=== PATIENT | female | born 1945 | race Caucasian/White ===

== ENCOUNTER 2017-07-03 09:49 | Inpatient (IN) | payer OTHER ==
[2017-06-07 11:24] VITALS: BMI 26.0
--- NOTE | 2017-06-07 11:59 | PAT Medication Instructions ---
Service Date Jun 07, 2017. Current Home Medication List Acetaminophen/Diphenhydramine (Tylenol Pm), 1 TAB PO HS PRN for PRN Calcium (Calcium), Unknown Dose PO HS Cyclosporine (Ophth) (Restasis), 1 DROP OPL BID Duloxetine HCl (Cymbalta), 60 MG PO HS Duloxetine HCl (Cymbalta), 40 MG PO HS Esomeprazole Magnesium (Nexium), 20 MG PO HS Fish Oil (Vendor-3), 2 CAP PO HS Folic Acid (Folvite), 6 MG PO QAM Hydrocodone/Acetaminophen 7.5MG/325MG ([place] 7.5MG/325MG), 1 TAB PO Q8 PRN for Pain Lysine HCl (Lysine), Unknown Dose PO HS Methotrexate (Methotrexate), 8 MG PO 1XWEEK Naproxen (Naprosyn), 500 MG PO BID Nebivolol Hcl (Bystolic), 20 MG PO QAM Pregabalin (Lyrica), 75 MG PO BID [Allergy Injection], Unknown Dose INJ UD Medication Instructions For Your Scheduled Surgery -Contact your prescriber for instructions for: Methotrexate (Methotrexate), 8 MG PO 1XWEEK -Contact your surgeon for instructions for: Naproxen (Naprosyn), 500 MG PO BID -Continue as directed: [Allergy Injection], Unknown Dose INJ UD - Hold the following medications 2 weeks prior to surgery: Fish Oil (Vendor-3), 2 CAP PO HS Lysine HCl (Lysine), Unknown Dose PO HS - Hold the following medications the morning of surgery: Folic Acid (Folvite), 6 MG PO QAM - Take the following medications the morning of surgery with a sip of water: Pregabalin (Lyrica), 75 MG PO BID Nebivolol Hcl (Bystolic), 20 MG PO QAM Hydrocodone/Acetaminophen 7.5MG/325MG ([place] 7.5MG/325MG), 1 TAB PO Q8 PRN for Pain (if needed, can be taken up to four hours before surgery) - Take the following medications as scheduled the night before surgery: Pregabalin (Lyrica), 75 MG PO BID Acetaminophen/Diphenhydramine (Tylenol Pm), 1 TAB PO HS PRN for PRN (if needed) Calcium (Calcium), Unknown Dose PO HS Cyclosporine (Ophth) (Restasis), 1 DROP OPL BID Duloxetine HCl (Cymbalta), 60 MG PO HS Duloxetine HCl (Cymbalta), 40 MG PO HS Esomeprazole Magnesium (Nexium), 20 MG PO HS Nebivolol Hcl (Bystolic), 20 MG PO QAM Hydrocodone/Acetaminophen 7.5MG/325MG ([place] 7.5MG/325MG), 1 TAB PO Q8 PRN for Pain (if needed) If you have any questions please call us at [phone] or [phone] or [phone]
--- NOTE | 2017-06-07 13:06 | DIAGNOSTIC IMAGING REPORT ---
CHEST 2 VIEWS ROUTINE CLINICAL HISTORY: Preoperative evaluation. COMPARISON STUDY: No previous studies for comparison. FINDINGS: Lung volumes are normal. No pneumothorax or pleural the effusion is present. There is no evidence of pulmonary edema. There is moderate cardiomegaly. No consolidation is identified to suggest pneumonia. Linear opacity projecting over the heart on lateral projection reflects atelectasis or scarring. IMPRESSION: 1. No acute cardiopulmonary findings. 2. Moderate cardiomegaly. Electronically signed by: Hua Mitchell M.D. 06/07/2017 1:05 PM Dictated Date/Time: 06/07/2017 1:04 PM
--- NOTE | 2017-06-07 13:25 | DIAGNOSTIC IMAGING REPORT ---
CERVICAL SPINE 3 VIEWS with flexion and extension HISTORY: Rheumatoid arthritis. Pre-op lateral: neutral, flexion, extension COMPARISON: None. FINDINGS: The cervical spine is visualized from C1 through the superior endplate of T1. There is no fracture. There is 1 mm of retrolisthesis of C5 on C6. Severe disc space narrowing at C5-C6 and C6-C7 with endplate osteophytes. Mild to moderate facet degenerative changes within the cervical spine. Straightening of the lower cervical spine. 1 mm of anterolisthesis of C3 on C4. The alignment remains intact throughout flexion and extension. Prevertebral soft tissues and the atlantodens interval are intact. IMPRESSION: 1. The alignment remains intact throughout flexion and extension. 2. Degenerative changes as described above. Electronically signed by: Fermin Saeed M.D. 06/07/2017 1:23 PM Dictated Date/Time: 06/07/2017 1:21 PM
[2017-06-07 14:10] LABS: CALCIUM 8.9 mg/dl (8.5-10.1); CREATININE 0.92 mg/dl (0.60-1.20); POTASSIUM 3.7 mmol/L (3.5-5.1)
[~2017-07-03] VITALS: Ht 182.9 cm; Wt 87.5 kg
[~2017-07-03 09:49] MED LIST: ALLERGY INJECTION INJ; CALC1CAP24 PO; CEFAZOLIN 2000MG IV PUSH 15 ML IV SCH; CYCL0.052 OPL; CYM/30 PO; DIPH-437 PO; DULO-24 PO; ESOM20CA PO; FOLI1TAB8 PO; HYDR-3983 PO; LACTATED RINGER'S 1000ML 1,000 ML IV SCH; LYSI1TAB12 PO; METH2.5T PO; NAPR-1169 PO; NEBI20TA2 PO; OMEG10007 PO; PATIENT'S ALLERGY INFO NEEDS ENTERED SCH; PREG1CAP28 PO
[2017-07-03 10:37] VITALS: BP 162/100; PULSE 59; TEMP 36.5; O2SAT 98; Ht 182.9 cm; Wt 87.5 kg
[2017-07-03] MEDS ORDERED: MoRPHine SULFATE 10 MG/ML CARP/VIAL IV PRN (10:45)
[2017-07-03] MEDS ORDERED: ATROPINE SULFATE 0.1 MG/ML 5ML SYR IV PRN (10:45)
[2017-07-03] MEDS ORDERED: ONDANSETRON INJ 2 MG/ML 2 ML VIAL IV PRN ×2 (10:45→13:15)
[2017-07-03] MEDS ORDERED: EpHEDrine SULFATE INJ 50 MG/ML AMP IV PRN (10:45)
[2017-07-03] MEDS ORDERED: FENTANYL CITRATE INJ 50 MCG/1 ML 2 ML VIAL IV PRN (10:45)
[2017-07-03] MEDS ORDERED: FENTANYL CITRATE INJ 50 MCG/1 ML 2 ML VIAL ONE ×2 (10:46→11:47)
[2017-07-03] MEDS ORDERED: MIDAZOLAM HCL 1 MG/ML 2ML VIAL ONE (10:46)
--- NOTE | 2017-07-03 10:57 | History & Physical Bridge Note ---
H&P Re-Evaluation Bridge Note: I have examined the patient, reviewed the History & Physical and in the interval since the performance of the History & Physical I have noted the following changes of clinical significance: No changes noted
--- NOTE | 2017-07-03 10:58 | History and Physical ---
History & Physical Date Jul 03, 2017. Chief Complaint Back and leg pain History of Present Illness The patient is a 71 year old female with complaints of back and leg pain Additional History Hepatic Disease: No Endocrine Disorder: No Kidney Disease: No Hypertension: No Heart Disease: No Bleeding Tendencies: No Infectious Diseases: No Home Medications Scheduled Calcium (Calcium), Unknown Dose PO HS Cyclosporine (Ophth) (Restasis), 1 DROP OPL BID Duloxetine HCl (Cymbalta), 60 MG PO HS Duloxetine HCl (Cymbalta), 40 MG PO HS Esomeprazole Magnesium (Nexium), 20 MG PO HS Fish Oil ([place]-3), 2 CAP PO HS Folic Acid (Folvite), 6 MG PO QAM Lysine HCl (Lysine), Unknown Dose PO HS Methotrexate (Methotrexate), 8 MG PO 1XWEEK Naproxen (Naprosyn), 500 MG PO BID Nebivolol Hcl (Bystolic), 20 MG PO QAM Pregabalin (Lyrica), 75 MG PO BID [Allergy Injection], Unknown Dose INJ UD Scheduled PRN Acetaminophen/Diphenhydramine (Tylenol Pm), 1 TAB PO HS PRN for PRN Hydrocodone/Acetaminophen 7.5MG/325MG ([place] 7.5MG/325MG), 1 TAB PO Q8 PRN for Pain Physical Examination Skin: warm/dry, no rash Eyes: normal inspection, EOMI, sclerae normal ENT: normal ENT inspection, pharynx normal Head: normocephalic, atraumatic Neck: supple, no adenopathy, trachea midline Respiratory/Chest: lungs clear, normal breath sounds, no respiratory distress Cardiovascular: regular rate, rhythm, no edema, no murmur Abdomen / GI: normal bowel sounds, non tender Back: normal inspection Extremities: normal inspection, normal range of motion Neurologic/Psych: no motor/sensory deficits, alert, normal reflexes, oriented x 3 Diagnosis Lumbar spinal stenosis Plan of Treatment Lumbar decompression and fusion L4-5
[2017-07-03] MEDS ORDERED: BUPIVACAINE/EPINEPHRINE 0.5% MPF 1:200,000 30 ML VIAL ONE (11:10)
[2017-07-03] MEDS ORDERED: BACITRACIN 50000 UNIT VIAL ONE (11:10)
[2017-07-03] MEDS ORDERED: SCOPOLAMINE 1.5 MG TDSY TD ONE (11:11)
[2017-07-03] MEDS ORDERED: CEFAZOLIN SOD 2000MG/15 ML IV PUSH IV ONE (11:24)
[2017-07-03] MEDS ORDERED: HYDROmorphone INJ 2 MG/ML SYR/VIAL ONE ×2 (11:47→13:11)
[2017-07-03] MEDS ORDERED: FLOSEAL HEMOSTATIC MATRIX 10ML TOP ONE (13:08)
[2017-07-03] MEDS ORDERED: DEXAMETHASONE SOD INJ 4 MG/ML VIAL ONE (13:11)
[2017-07-03] MEDS ORDERED: LIDOCAINE HCL 2% 2 ML VIAL (20MG/ML) ONE (13:11)
[2017-07-03] MEDS ORDERED: PHENYLEPHRINE 100MCG/ML 5ML SYR ONE (13:11)
[2017-07-03] MEDS ORDERED: GLYCOPYRROLATE INJ 0.2 MG/ML VIAL ONE ×2 (13:11→13:13)
[2017-07-03] MEDS ORDERED: EpHEDrine SULFATE INJ 50 MG/ML AMP ONE (13:11)
[2017-07-03] MEDS ORDERED: PROPOFOL IV EMULSION 10 MG/ML 20 ML VIAL IV ONE (13:11)
[2017-07-03] MEDS ORDERED: ROCURONIUM BROMIDE 10 MG/ML 5 ML VIAL IV ONE (13:11)
[2017-07-03] MEDS ORDERED: ONDANSETRON INJ 2 MG/ML 2 ML VIAL ONE ×2 (13:11→13:13)
[2017-07-03] MEDS ORDERED: NEOSTIGMINE METHYLSULFATE 1 MG/ML 10ML VIAL ONE (13:13)
[2017-07-03] MEDS ORDERED: RANITIDINE HCL 25 MG/ML INJ ONE (13:13)
[2017-07-03] MEDS ORDERED: KETOROLAC TROMETHAMINE 30 MG/ML VIAL ONE (13:13)
--- NOTE | 2017-07-03 13:13 | [facility] Operative Report ---
Operative Report Operative Date Jul 03, 2017. Pre-Operative Diagnosis Lumbar spinal stenosis L4-L5 Post-Operative Diagnosis Lumbar spinal stenosis L4-L5 Procedure(s) Performed #1 lumbar decompression medial facetectomies foraminotomies L3 4 L4 5. #2 posterior spinal fusion L4 5. #3 placement posterior instrumentation L4 5. #4 interbody fusion L4 5. #5 placement peek cage 15 x 22 mm at L45. #6 placement of locally harvested morcellized autograft in the posterior lateral gutters. #7 placement infuse collagen sponge Master graft in the posterior lateral gutters and ostial amp in the interbody space. Surgeon Dr. Cohen Metal Baler Surgeon(s) Agueda RYAN Estimated Blood Loss 250 ml Findings Severe spinal stenosis with facet cyst. Specimens none per surgeon Anesthesia Type General Description of Procedure Patient was met with preoperatively case discussed all questions addressed. After informed consent obtained patient was taken to the operative suite underwent intubation and placed in a prone position the Arthur table on top of the Ravinedr frame. All bony prominences well-padded eyes inspected to ensure no external pressure placed upon them. At this point the lumbar spine was prepped and draped in the normal sterile fashion. Sharp dissection with the assistance of Bovie cautery was performed onto an exposing the lamina transverse processes of L4 5 bilaterally. From a caudal to cephalad fashion complete laminectomy of L4 partial laminectomy of L3 was performed addressing severe lateral recess foraminal disease including massive facet cyst. After this is complete pedicle screws were placed in L4 and L5 bilaterally with the assistance of fluoroscopy and the processes janet placed. Through a transverse foraminal approach on the right a complete discectomy of L4 5 was performed endplates graded to subcortical bleeding bone and a 15 x 22 mm peek cage filled with osteal bone graft tapped in position. Rods and then compressed locked into final position bilaterally. The transverse processes of L4 and L5 burred to subcortical bleeding bone. Infuse collagen sponge mass graft locally harvested morcellized autograft was placed in the posterior lateral gutters. 15 round JEFF drain inserted. Incision then closed with 1 Vicryl in the fascia 2-0 Vicryl subcutaneous tensely 4-0 Monocryl for final skin closure Steri-Strips dressings placed. Patient awakened taken PACU stable condition. Please note Juana العراقي was present at the entire procedure involved in patient positioning complex portions of the surgery and final skin closure. I attest to the content of the Intraoperative Record and any orders documented therein. Any exceptions are noted below.
[2017-07-03] MEDS ORDERED: SODIUM CHLORIDE 0.9% 1000ML 1,000 ML IV SCH (13:14)
[2017-07-03] MEDS ORDERED: FAMOTIDINE 20 MG TAB PO PRN (13:15)
[2017-07-03] MEDS ORDERED: METOCLOPRAMIDE HCL INJ 5 MG/ML 2 ML VIAL IV PRN (13:15)
[2017-07-03] MEDS ORDERED: DO NOT ADMINISTER PNEUMOCOCCAL VACCINE PRN (13:15)
[2017-07-03] MEDS ORDERED: CEFAZOLIN IV 2,000 MG in DEXTROSE 5% 50ML 50 ML IV SCH (13:15)
[2017-07-03] MEDS ORDERED: ALUMINUM/MAGNESIUM SUSP 30 ML UDC PO PRN (13:15)
[2017-07-03] MEDS ORDERED: LORAZEPAM 0.5 MG TAB PO PRN (13:15)
[2017-07-03] MEDS ORDERED: SOD PHOSPHATE/SOD BIPHOSPHATE ENEMA 132 ML BTL PR PRN (13:15)
[2017-07-03] MEDS ORDERED: PROMETHAZINE HCL INJ 12.5 MG in SODIUM CHLORIDE 0.9% 50ML 50 ML IV PRN (13:15)
[2017-07-03] MEDS ORDERED: BISACODYL 10 MG SUPP PR PRN (13:15)
[2017-07-03] MEDS ORDERED: LORAZEPAM INJ 0.5 MG in SYRINGE 0 ML IV PRN (13:15)
[2017-07-03] MEDS ORDERED: hydrOXYzine HCL 25 MG TAB PO PRN (13:15)
[2017-07-03] MEDS ORDERED: DO NOT ADMINISTER FLU VACCINE PRN (13:15)
[2017-07-03] MEDS ORDERED: NALOXONE HCL 0.4 MG/1 ML VIAL/CARP IV PRN (13:15)
[2017-07-03] MEDS ORDERED: ACETAMINOPHEN IV 100 ML IV PRN (13:15)
[2017-07-03] MEDS ORDERED: MAGNESIUM HYDROXIDE SUSP 30 ML UDC PO PRN (13:15)
[2017-07-03] MEDS ORDERED: HYDROmorphone HCL 0.5MG/ML 50 ML CASSETTE ONE (13:31)
--- NOTE | 2017-07-03 13:51 | DIAGNOSTIC IMAGING REPORT ---
LUMBAR SPINE, INTRAOPERATIVE FLUOROSCOPY HISTORY: L4-5 decompression and fusion. FLUOROSCOPY TIME: 11 seconds. FINDINGS: Intraoperative fluoroscopy was provided for the lumbar spine. 2 fluoroscopic spot images were obtained. Posterior decompression and fusion at L4-L5 with pedicle screws and rods. The hardware appears intact. IMPRESSION: Fluoroscopy provided for a L4-5 posterior decompression and fusion. Electronically signed by: Fermin Saeed M.D. 07/03/2017 1:49 PM Dictated Date/Time: 07/03/2017 1:49 PM
--- NOTE | 2017-07-03 14:14 | Anesthesiology Progress Note ---
Anesthesia Post Op Note Date & Time Jul 03, 2017 at 14:14 Vital Signs Pain Intensity: 2 Vital Signs Past 12 Hours Date Time Temp Pulse Resp B/P (MAP) Pulse Ox O2 Delivery O2 Flow Rate FiO2 07/03/17 13:55 71 13 145/81 98 Nasal Cannula 4 07/03/17 13:45 60 13 144/77 100 Oxymask 10 07/03/17 13:35 60 13 143/75 100 Oxymask 10 07/03/17 13:27 36.0 61 14 142/79 94 Oxymask 10 07/03/17 10:37 36.5 59 16 162/100 98 Room Air Notes Mental Status: alert / awake / arousable, participated in evaluation Pt Amnestic to Procedure: Yes Nausea / Vomiting: adequately controlled Pain: adequately controlled Airway Patency, RR, SpO2: stable & adequate BP & HR: stable & adequate Hydration State: stable & adequate Anesthetic Complications: no major complications apparent
[2017-07-03] MEDS: HYDROmorphone HCL 0.5MG/ML 50 ML CASSETTE IV PRN ×3 (14:37→22:59)
[2017-07-03 14:45] VITALS: BP 139/78; PULSE 68; TEMP 36.6; O2SAT 99
[2017-07-03 15:10] VITALS: BP 127/70; PULSE 61; TEMP 36.8; O2SAT 100
[2017-07-03 16:10] VITALS: O2SAT 100
[2017-07-03] MEDS: SODIUM CHLORIDE 0.9% 1000ML 1,000 ML IV SCH ×2 (17:06→23:53)
[2017-07-03] MEDS: CEFAZOLIN IV 2,000 MG in SYRINGE 0 ML IV SCH (19:55)
[2017-07-03 20:02] VITALS: BP 170/82; PULSE 77; TEMP 36.9; O2SAT 96
[2017-07-03] MEDS: PANTOprazole SOD 40 MG TAB PO SCH (22:02)
[2017-07-03] MEDS: DULOXETINE (CYMBALTA) 30 MG CAP PO SCH (22:03)
[2017-07-03] MEDS: DOCUSATE SODIUM/SENNA 50/8.6MG TAB PO SCH (22:03)
[2017-07-03] MEDS: DULOXETINE HCL 20 MG CAP PO SCH (22:03)
[2017-07-03] MEDS: PREGABALIN 75 MG CAP PO SCH (22:03)
[2017-07-03 22:48] VITALS: BP 157/82; PULSE 76; TEMP 36.6; O2SAT 97
[2017-07-04 03:10] VITALS: BP 127/69; PULSE 75; TEMP 36.5; O2SAT 97
[2017-07-04] MEDS: CEFAZOLIN IV 2,000 MG in SYRINGE 0 ML IV SCH (03:31)
[2017-07-04] MEDS ORDERED: HYDROmorphone INJ 0.5 MG/0.5 ML SYR IV PRN (06:00)
[2017-07-04] MEDS ORDERED: NALOXONE HCL 0.4 MG/1 ML VIAL/CARP IV PRN (06:00)
[2017-07-04] MEDS ORDERED: DC PCA SCH (06:00)
[2017-07-04] MEDS ORDERED: NURSING DECISION MEDICATION ORDER SCH (06:30)
[2017-07-04] MEDS: OXYCODONE HCL IR 5 MG TAB (IMMEDIATE RELEASE) PO PRN ×4 (06:39→22:24)
[2017-07-04 07:00] VITALS: BP 145/66; PULSE 70; TEMP 36.4; O2SAT 100
[2017-07-04 07:01] LABS: HEMOGLOBIN 9.8 g/dL (12.0-16.0); IG# 0.03 K/uL (0.00-0.02); LYMPH % 6.9 %; LYMPH ABS # 0.77 K/uL (1.2-3.4); MEAN CELL VOLUME 79.5 fL (80-100); MEAN CORPUSCULAR HEMOGLOBIN 26.8 pg (25-34); MEAN CORPUSCULAR HGB CONC 33.8 g/dl (32-36); MEAN PLATELET VOLUME 9.1 fL (7.4-10.4); MONO % 6.6 %; MONO ABS # 0.74 K/uL (0.11-0.59); NEUT % 86.2 %; NEUT ABS # 9.63 K/uL (1.4-6.5); PLATELET COUNT 224 K/uL (130-400); RED CELL DISTRIBUTION WIDTH CV 16.6 % (11.5-14.5); RED CELL DISTRIBUTION WIDTH SD 48.3 fL (36.4-46.3); WHITE BLOOD COUNT 11.17 K/uL (4.8-10.8)
[2017-07-04 07:31] LABS: CALCIUM 8.8 mg/dl (8.5-10.1); CREATININE 0.79 mg/dl (0.60-1.20); POTASSIUM 3.9 mmol/L (3.5-5.1)
[2017-07-04] MEDS: HYDROmorphone INJ 1 MG/ML SYR IV PRN ×3 (08:01→14:15)
[2017-07-04] MEDS: PREGABALIN 75 MG CAP PO SCH ×2 (08:54→22:12)
[2017-07-04] MEDS: NEBIVOLOL HCL 5 MG TAB PO SCH (09:02)
--- NOTE | 2017-07-04 10:18 | Progress Note ---
Progress Note Date of Service Jul 04, 2017. Progress Note Patient is a comfortable. She states her back leg pain is controlled. On exam she is sitting up at the bedside. Has good strength testing. Assessment status post lumbar decompression fusion. Plan this time will continue physical therapy advance her bowel regimen and consider discharge home tomorrow with home health.
[2017-07-04] MEDS ORDERED: RXC5 PO (10:19)
--- NOTE | 2017-07-04 10:20 | Discharge Instructions ---
Discharge Instructions Date of Service Jul 04, 2017. Admission Reason for Admission: Lumbar Spinal Stenosis L4-5 Discharge Discharge Diagnosis / Problem: lumbar stenosis Discharge Goals Goal(s): Improve function Activity Recommendations Activity Limitations: per Instructions/Follow-up section . Instructions / Follow-Up Instructions / Follow-Up ACTIVITY RECOMMENDATIONS: SELF CARE INSTRUCTIONS AFTER THORACIC/LUMBAR FUSIONS 1. You may walk to your tolerance. It is good exercise for your legs and back. Expect some back and intermittent leg aches and pains. 2. You may perform "counter-top" level activities (make a sandwich, maureen with a project, etc.). 3. No bending or lifting of more than 10 pounds or back twisting of any nature (roll like a log when turning in bed). 4. You may ride in a car for 20-30 minutes at a time. No driving until after your first visit with your doctor. 5. Frequent changes of position and restricting sitting to 30 minutes at a time will help limit the amount of back spasms and stiffness you may experience. 6. You may discontinue the use of ambulatory aids (cane, crutches, etc.) once your strength and confidence allow. 7. You may refractory grinder operator the shower and let water strike your incision when you arrive home at least once daily. Do not take a tub bath, sit in a hot tub or go into a swimming pool until after your first recheck in the office. SPECIAL CARE INSTRUCTIONS: VERY IMPORTANT TO READ AND REVIEW A. Your surgical incision has been closed with a cosmetic suture under the skin that will dissolve in about 6 weeks. In 14 days, you can use a pair of clean scissors and cut the suture that is left outside of the skin at the ends of your incision. 1. The small skin tapes can be removed 7 days after surgery if they have not fallen off by that point. 2. You may keep the wound open to air as much as possible to promote healing after post-op day number 5 unless told otherwise by your doctor. 3. If you think the wound looks like it is becoming infected (redness or worsening drainage) and/or you are experiencing fever, chill or worsening back pain and muscle spasms, contact the office so that we may evaluate you as soon as possible. B. Complications are uncommon, but please contact us if you have any signs or symptoms of: 1. wound infection (fever higher than 102.5 degrees F, redness, separation of wound, drainage, or increasing pain from the incision) 2. blood clots in legs (pain, swelling, redness and warmth in legs) 3. urinary tract infection (fever higher than 102.5 degrees F, burning upon urination or increased frequency of urination) 4. nerve problems (inability to walk on your toes or heels, numbness, loss of bowel or bladder control) 5. any other symptoms that concern you C. Please call the office at if you have any concerns or questions about your operation or recovery. D. No smoking! Smoking drastically decreases the chance of a solid fusion. E. Do not take any anti-inflammatory medications (Indocin, Advil, Motrin, Aspirin, Naprosyn, etc.) as these may inhibit the chance of a solid fusion. Tylenol is okay to take for pain. MANAGING PAIN AFTER SPINAL SURGERY 1. Narcotic medication is intended for short-term use and will be provided for surgical pain. Surgical pain usually lasts for a period of 4-6 weeks. Narcotic medication includes Percocet, Vicodin, Darvocet, Tylenol #3 or Lortab. 2. Longer-term pain is more appropriately treated with non-narcotic medication such as Tylenol ES. 3. Muscle spasm is not appropriately treated with narcotics. Muscle relaxers such as Soma, Flexeril or Skelaxin can be used along with Tylenol ES. 4. Remember that we all live with some "aches and pains". This is not unusual or uncommon after an injury or as we get older. a. Back pain is expected and may include muscle spasms for 4 to 6 weeks after surgery. The pain should gradually improve. If the pain worsens for no apparent reason, please contact the office. b. Intermittent leg pain may also be experienced and should not be concerned about unless it worsens for no apparent reason. If so, please contact the office. 5. We will provide appropriate medication within the normal guidelines of their prescribed use. We will also be very cautious and aware of potential abuse and extended duration of patients' medication needs. a. Pain medications are for your comfort and to assist with sleep and rest so that the tissue can heal. They are not provided in order to return to normal activity and should not be used through the day. To do so or worsening pain at night can result from ongoing tissue damage and development of tolerance to the prescribed medicine. 6. Please allow 2-3 days to process refills. Prescriptions will not be mailed but must be picked up at the office. FOLLOW UP VISIT: Keep your scheduled follow-up appointment. Any questions, please call the office at . Current Hospital Diet Patient's current hospital diet: Regular Diet Discharge Diet Recommended Diet: Regular Diet Procedures Procedures Performed: #1 lumbar decompression medial facetectomies foraminotomies L3 4 L4 5. #2 posterior spinal fusion L4 5. #3 placement posterior instrumentation L4 5. #4 interbody fusion L4 5. #5 placement peek cage 15 x 22 mm at L45. #6 placement of locally harvested morcellized autograft in the posterior lateral gutters. #7 placement infuse collagen sponge Master graft in the posterior lateral gutters and ostial amp in the interbody space. Pending Studies Studies pending at discharge: no Medical Emergencies . Who to Call and When: Medical Emergencies: If at any time you feel your situation is an emergency, please call 911 immediately. . Non-Emergent Contact Non-Emergency issues call your: Primary Care Provider . "Provider Documentation" section prepared by Brant Cohen. . VTE Core Measure Inpt VTE Proph given/why not?: Martha Ram, [facility]
[2017-07-04 11:35] VITALS: BP 124/74; PULSE 74; TEMP 36.9; O2SAT 96
[2017-07-04 15:45] VITALS: BP 129/76; PULSE 73; TEMP 36.8; O2SAT 95
[2017-07-04 18:55] VITALS: BP 146/78; PULSE 80; TEMP 36.6; O2SAT 94
[2017-07-04] MEDS: ACETAMINOPHEN 500 MG TAB PO PRN (19:37)
--- NOTE | 2017-07-04 20:18 | DIAGNOSTIC IMAGING REPORT ---
LUMBAR SPINE 2 VIEWS CLINICAL HISTORY: Fall. Low back pain. Recent lumbar fusion. FINDINGS: AP and lateral views of the lumbar spine are obtained. No prior studies are available for comparison at the time of dictation. The skeletal structures are osteopenic. There is no radiographic evidence of fracture or malalignment. Vertebral body height and alignment are maintained throughout the lumbar spine. There is evidence of laminectomy and posterior fusion at L4-L5. Intrapedicular screws are present at both levels. The orthopedic hardware appears intact. Anterior osteophytes are seen throughout. The transverse processes appear intact. There has been discectomy at L4-L5. Advanced disc space narrowing is seen at L2-L3 with associated endplate sclerosis. Only mild disc space narrowing is noted at the remaining lumbar levels. The bony pelvis is intact as visualized. There is a nonobstructed abdominal bowel gas pattern, noting moderate to severe constipation. A surgical drain is present within the posterior soft tissues. Atherosclerotic calcification is noted in the abdominal aorta. IMPRESSION: 1. There is no radiographic evidence of fracture or malalignment involving the lumbar spine. 2. Osteopenia with postoperative and spondylotic change, as above. 3. Moderate to severe constipation. Dictated: 07/04/2017 8:05 PM Transcribed: 07/04/2017 8:18 PM [email or web address] Electronically signed by: Nii Rodríguez M.D. 07/04/2017 8:27 PM Dictated Date/Time: 07/04/2017 8:05 PM
[2017-07-04] MEDS: DULOXETINE HCL 20 MG CAP PO SCH (22:13)
[2017-07-04] MEDS: DOCUSATE SODIUM/SENNA 50/8.6MG TAB PO SCH (22:13)
[2017-07-04] MEDS: DULOXETINE (CYMBALTA) 30 MG CAP PO SCH (22:13)
[2017-07-04] MEDS: PANTOprazole SOD 40 MG TAB PO SCH (22:14)
[2017-07-04 23:45] VITALS: BP 134/75; PULSE 71; TEMP 36.8; O2SAT 93
[2017-07-05] MEDS: POLYETHYLENE (MIRALAX) 17 GM PACK PO SCH ×4 (05:03→23:35)
[2017-07-05] MEDS: OXYCODONE HCL IR 5 MG TAB (IMMEDIATE RELEASE) PO PRN ×2 (05:04→10:30)
[2017-07-05 07:57] VITALS: BP 120/68; PULSE 77; TEMP 36.7; O2SAT 96
[2017-07-05 08:28] VITALS: O2SAT 96
[2017-07-05] MEDS: PREGABALIN 75 MG CAP PO SCH ×2 (08:55→20:42)
[2017-07-05] MEDS: NEBIVOLOL HCL 5 MG TAB PO SCH (08:56)
[2017-07-05 11:58] VITALS: BP 164/80; PULSE 78; TEMP 36.7; O2SAT 98
--- NOTE | 2017-07-05 13:07 | Progress Note ---
Progress Note Date of Service Jul 05, 2017. Progress Note Patient's back pain is controlled. Leg pain improved. On exam she is sitting in the bed has good strength testing appears comfortable. Assessment status post lumbar decompression fusion. Plan at this time her x-rays demonstrate instrumentation being placed appropriate alignment. We will discontinue her drain today. We are looking to transition her to [facility] tomorrow.
[2017-07-05 13:25] VITALS: BP 162/84; PULSE 81; TEMP 36.6; O2SAT 96
[2017-07-05 15:30] VITALS: BP 142/81; PULSE 76; TEMP 37.2; O2SAT 94
[2017-07-05] MEDS: ACETAMINOPHEN 500 MG TAB PO PRN (17:06)
[2017-07-05] MEDS: PANTOprazole SOD 40 MG TAB PO SCH (20:41)
[2017-07-05] MEDS: DULOXETINE HCL 20 MG CAP PO SCH (20:41)
[2017-07-05] MEDS: DULOXETINE (CYMBALTA) 30 MG CAP PO SCH (20:42)
[2017-07-05] MEDS: DOCUSATE SODIUM/SENNA 50/8.6MG TAB PO SCH (20:42)
[2017-07-05 23:52] VITALS: BP 156/77; PULSE 95; TEMP 36.7; O2SAT 94
[2017-07-06] MEDS: ACETAMINOPHEN 500 MG TAB PO PRN ×2 (04:41→16:51)
[2017-07-06] MEDS: POLYETHYLENE (MIRALAX) 17 GM PACK PO SCH ×2 (05:18→12:12)
[2017-07-06 07:46] VITALS: BP 173/80; PULSE 64; TEMP 36.6; O2SAT 92
[2017-07-06] MEDS: PREGABALIN 75 MG CAP PO SCH (08:31)
[2017-07-06] MEDS: NEBIVOLOL HCL 5 MG TAB PO SCH (08:32)
[2017-07-06 10:30] VITALS: BP 150/75
[2017-07-06 11:31] VITALS: BP 150/73
--- NOTE | 2017-07-06 12:41 | Discharge Summary ---
Orthopedic Discharge Summary Admission Date/Reason Jul 03, 2017 at 11:00 Lumbar Spinal Stenosis L4-5. Discharge Date/Disposition Jul 06, 2017 Rehab Diagnosis Principal Diagnosis: Lumbar spinal stenosis Admission Physical Exam As per Admitting History & Physical. Hospital Course Patient with lumbar decompression fusion tolerated as well as taken to the orthopedic floor postoperatively. Postoperative day #1 she was up in amatory progressed nicely through postop day #2 subsidence discharged to rehabilitation postop day 3. Discharge orders and instructions found in the chart for further review. Discharge Instructions Please refer to the electronic Patient Visit Report (Discharge Instructions) for additional information.
[2017-07-06 13:32] VITALS: BP 150/73; PULSE 64; TEMP 36.6; O2SAT 92
[2017-07-06 15:40] VITALS: PULSE 57; TEMP 36.4; O2SAT 97
[2017-07-06] MEDS: OXYCODONE HCL IR 5 MG TAB (IMMEDIATE RELEASE) PO PRN (16:50)
== END 2017-07-06 17:18 | DRG 455 ==
LOC: C.ACU 09:49 → C.3E 11:00 → ENRESERV 14:22 → C.3E 07-05 21:58
PROVIDERS: ADMIT Orthopaedic Surgery Orthopaedic Surgery of the Spine; ATTEND Orthopaedic Surgery Orthopaedic Surgery of the Spine
PROC: 0SG00AJ Fusion of Lumbar Vertebral Joint with Interbody Fusion Device, Posterior Approach, Anterior Column, Open Approach (ICD-10-PCS; principal; 2017-07-03 11:45)
PROC: 0SG0071 Fusion of Lumbar Vertebral Joint with Autologous Tissue Substitute, Posterior Approach, Posterior Column, Open Approach (ICD-10-PCS; principal; 2017-07-03 11:45)
PROC: 0ST40ZZ Resection of Lumbosacral Disc, Open Approach (ICD-10-PCS; principal; 2017-07-03 11:45)
DX: M48.061 Spinal stenosis, lumbar region without neurogenic claudication (principal)

== ENCOUNTER 2017-08-14 20:27 | Inpatient (IN) | payer OTHER ==
[~2017-08-14] VITALS: Ht 182.9 cm; Wt 85.0 kg
[~2017-08-14 20:27] MED LIST changes: -CEFAZOLIN 2000MG IV PUSH 15 ML IV SCH; -LACTATED RINGER'S 1000ML 1,000 ML IV SCH; -METH2.5T PO; -NAPR-1169 PO; -PATIENT'S ALLERGY INFO NEEDS ENTERED SCH; +RXC5 PO
[2017-08-14] MEDS ORDERED: ONDANSETRON INJ 2 MG/ML 2 ML VIAL IV STA (22:35)
[2017-08-14] MEDS ORDERED: KETOROLAC TROMETHAMINE 30 MG/ML VIAL IV STA (22:35)
[2017-08-14] MEDS ORDERED: MoRPHine SULFATE 4 MG/ML 1 ML CARP\\VIAL IV STA (22:35)
[2017-08-14 23:16] LABS: BASO % 1.1 %; BASO ABS # 0.09 K/uL (0-0.2); EOS ABS # 0.32 K/uL (0-0.5); HEMATOCRIT 33.4 % (37-47); HEMOGLOBIN 11.1 g/dL (12.0-16.0); IG# 0.02 K/uL (0.00-0.02); LYMPH % 19.5 %; LYMPH ABS # 1.55 K/uL (1.2-3.4); MEAN CELL VOLUME 74.7 fL (80-100); MEAN CORPUSCULAR HEMOGLOBIN 24.8 pg (25-34); MEAN CORPUSCULAR HGB CONC 33.2 g/dl (32-36); MEAN PLATELET VOLUME 8.8 fL (7.4-10.4); MONO % 8.3 %; MONO ABS # 0.66 K/uL (0.11-0.59); NEUT % 66.8 %; PLATELET COUNT 302 K/uL (130-400); RED CELL DISTRIBUTION WIDTH CV 16.2 % (11.5-14.5); RED CELL DISTRIBUTION WIDTH SD 44.2 fL (36.4-46.3); WHITE BLOOD COUNT 7.94 K/uL (4.8-10.8)
[2017-08-14 23:39] LABS: CALCIUM 8.8 mg/dl (8.5-10.1); CREATININE 0.93 mg/dl (0.60-1.20); POTASSIUM 3.2 mmol/L (3.5-5.1)
[2017-08-15] VITALS (11 sets, daily range): BP systolic 155–204; BP diastolic 76–102; PULSE 54–74; TEMP 36.4–36.9; O2SAT 96–99; Ht 182.9 cm; Wt 85.0 kg
[2017-08-15] MEDS ORDERED: MoRPHine SULFATE 4 MG/ML 1 ML CARP\\VIAL IV PRN (00:30)
[2017-08-15] MEDS ORDERED: NURSING VERBAL MED ORDER ONE (02:15)
[2017-08-15] MEDS ORDERED: OXYC-164 PO (02:46)
[2017-08-15] MEDS ORDERED: METH2.5T PO ×2 (02:48→09:09)
[2017-08-15] MEDS ORDERED: IV FLUIDS COMPLETED PRN (04:15)
[2017-08-15] MEDS: OXYCODONE HCL IR 5 MG TAB (IMMEDIATE RELEASE) PO PRN ×4 (04:36→18:53)
[2017-08-15] MEDS: HYDROmorphone INJ 2 MG/ML SYR/VIAL IV PRN ×3 (06:30→19:59)
--- NOTE | 2017-08-15 07:10 | DIAGNOSTIC IMAGING REPORT ---
MRI LUMBAR SPINE W/O CONTRAST CLINICAL HISTORY: Left leg pain. History of prior back surgery. TECHNIQUE: Sagittal and axial T1, T2 and STIR images were obtained. COMPARISON STUDY: Conventional radiographic study dated 07/04/2017 OBSERVATIONS: The vertebral bodies and posterior elements appear intact. There is no abnormal bony signal present to suggest a marrow replacement process. L1-2: No disc protrusions or extrusions. No evidence of spinal canal or neural foraminal compromise. L2-3: There is a right lateral disc bulge/protrusion. There is no spinal stenosis. There is right-sided foraminal narrowing. L3-4: There is a circumferential disc bulge with facet joint arthropathy and ligamentous hypertrophy. There is moderate spinal stenosis. There is bilateral foraminal narrowing. L4-5: There are postsurgical changes of a posterior laminectomy. There is posterior pedicle screw fixation with L4 and L5 pedicle screws. There is no significant spinal or foraminal stenosis. L5-S1: There is a mild circumferential disc bulge. There is facet joint arthropathy. There is no significant spinal or foraminal stenosis. Postsurgical changes are present within the posterior paraspinal soft tissues secondary to recent surgery. The conus medullaris and cauda equina appear normal. IMPRESSION: 1. Postsurgical changes the L4-5 level 2. Disc bulge and moderate spinal stenosis at the L3-4 level. There is also bilateral foraminal narrowing 3. Right lateral disc bulge/protrusion at the L2-3 level with right-sided foraminal narrowing. Electronically signed by: Dat Loco M.D. 08/15/2017 7:09 AM Dictated Date/Time: 08/15/2017 7:05 AM
[2017-08-15] MEDS ORDERED: METOPROLOL TARTRATE 50 MG TAB PO ONE (08:00)
[2017-08-15] MEDS: PREGABALIN 75 MG CAP PO SCH ×2 (08:25→21:07)
[2017-08-15] MEDS ORDERED: MAGNESIUM HYDROXIDE SUSP 30 ML UDC PO PRN (09:15)
[2017-08-15] MEDS ORDERED: ONDANSETRON INJ 2 MG/ML 2 ML VIAL IV PRN (09:45)
[2017-08-15] MEDS ORDERED: ACETAMINOPHEN 325 MG TAB PO PRN (09:45)
--- NOTE | 2017-08-15 09:47 | Medical Consult ---
Consultation Date of Consultation: Aug 15, 2017. Attending Physician: Brant Cohen D.O. Reason for Consultation: Medical management History of Present Illness Pt is 71 y/o F with PMH HTN, RA, spinal stenosis that was admitted by Dr Cohen for back pain, seen in consultation for medical management of HTN. Pt with hx lumbar decompression L3-L4, L4-L5 and spinal fusion L4-L5 by Dr Cohen on . Pt reports went to [facility] for rehab for 10 days and was d/c, doing well and without pain and was reports was walking daily. Pt states approx 2 weeks ago started with left low back pain, aggravated with movement of torso and increased pain with standing with pain to L leg also with standing. States she was called in a muscle relaxer and oxycodone which she used with limited relief. Then pt states completed medrol dose sergio without any relief. Reports incision site appears well healed without any erythema, edema or discharge noted. Last BM 2-3 days ago. Yesterday increased left low back pain and also some to right low back and presented to ER and was then admitted. Denies LE paresthesias or weakness or edema. Denies loss control of bowel/bladder, dysuria , hematuria, urinary frequency/hesitency/retention. Denies fever/chills, diaphoresis, N/V/D, MOHAN, dizziness, syncope, vision changes, neck pain, CP, SOB, orthopnea, palpitations, cough, sore throat, choking, otalgia, rhinorrhea, abdominal pain, paresthesias, rashes. In ER had MRI L-SPINE: IMPRESSION: 1. Postsurgical changes the L4-5 level 2. Disc bulge and moderate spinal stenosis at the L3-4 level. There is also bilateral foraminal narrowing 3. Right lateral disc bulge/protrusion at the L2-3 level with right-sided foraminal narrowing. Past Medical/Surgical History Medical Problems: (1) Allergic rhinitis Status: Chronic (2) Hiatal hernia Status: Chronic (3) HTN (hypertension) Status: Chronic (4) Hx of gastric ulcer Status: Resolved (5) Rheumatoid arthritis Status: Chronic Surgical Problems: (1) History of lumbar spinal fusion Permanent Comment: 07/03/17 - Dr Cohen - Lumbar spinal decompression and fusion Status: Resolved (2) History of tonsillectomy and adenoidectomy Status: Resolved (3) Hx of hysterectomy Status: Resolved Family History Diabetes mellitus FH: CAD (coronary artery disease) FH: colon cancer Social History Smoking Status: Never Smoker Smokeless Tobacco Use: No Alcohol Use: socially Drug Use: none Marital Status: Housing Status: lives with significant other Occupation Status: retired Allergies Coded Allergies: Corticosteroids (Verified Adverse Reaction, Mild, night sweats, 08/15/17) Home Medications Reported Home Medications Medications Dose Route/Sig Max Daily Dose Days Date Category Dose Instructions Methotrexate (Methotrexate Sodium) 2.5 Mg Tab 8 Tab PO WK 28 08/15/17 Reported Takes on Fridays Oxycodone Hcl 10 Mg Tab 5-10 Mg PO Q4 PRN 30 08/15/17 Reported [Allergy Injection] Unknown Strength Unknown Dose INJ UD 06/07/17 Reported PT RECEIVES ONCE A WEEK AT PCP OFFICE - THE DAY MAY VARY Restasis (Cyclosporine (Ophth)) 0.05 % Emu 1 Drop OPL BID 06/07/17 Reported [place]-3 (Fish Oil) 1 Ea Cap 2 Cap PO HS 06/07/17 Reported [place] 7.5MG/325MG (Acetaminophen/Hydrocodone Bitart) Tab 1 Tab PO Q8 PRN 06/07/17 Reported PRN PAIN Calcium Unknown Strength Cap 800 Mg PO HS 06/07/17 Reported Lysine (Lysine HCl) Unknown Strength Tab Unknown Dose PO HS 06/07/17 Reported Lyrica (Pregabalin) 75 Mg Cap 75 Mg PO BID 06/07/17 Reported Nexium (Esomeprazole Magnesium) 20 Mg Capcr 40 Mg PO HS 06/07/17 Reported Cymbalta (Duloxetine HCl) 20 Mg Cap 40 Mg PO HS 30 06/07/17 Reported Cymbalta (Duloxetine HCl) 30 Mg Cap 60 Mg PO HS 30 06/07/17 Reported Folvite (Folic Acid) 1 Mg Tab 6 Mg PO QAM 06/07/17 Reported Bystolic (Nebivolol Hcl) 20 Mg Tab 20 Mg PO QAM 06/07/17 Reported Current Inpatient Medications Current Inpatient Medications Medications (Trade) Dose Ordered Sig/[place] Route Start Time Stop Time Status Last Admin Dose Admin Oxycodone HCl (Roxicodone Immediate Rel Tab) 5 mg Q4H PRN PO 08/15/17 02:30 08/29/17 02:29 08/15/17 04:36 5 MG Hydromorphone HCl (Dilaudid Inj) 1 mg Q4H PRN IV 08/15/17 02:30 08/29/17 02:29 08/15/17 06:30 1 MG Miscellaneous (Iv Fluids Completed) 1 ea PRN PRN N/A 08/15/17 04:15 08/15/18 04:14 Duloxetine HCl (Cymbalta Cap) 40 mg HS PO 08/15/17 21:00 09/14/17 20:59 Duloxetine HCl (Cymbalta Cap) 60 mg HS PO 08/15/17 21:00 09/14/17 20:59 Pregabalin (Lyrica Cap) 75 mg BID PO 08/15/17 09:00 09/14/17 08:59 08/15/17 08:25 75 MG Clonidine HCl (Catapres Tab) 0.1 mg Q6H PRN PO 08/15/17 07:45 09/14/17 07:44 Metoprolol Tartrate (Lopressor Tab) 50 mg BID PO 08/15/17 21:00 09/14/17 20:59 Review of Systems See HPI for pertinent positives & negatives. All other systems reviewed and were otherwise negative Physical Exam Date Time Temp Pulse Resp B/P (MAP) Pulse Ox O2 Delivery O2 Flow Rate FiO2 08/15/17 08:21 74 180/82 (114) 08/15/17 07:30 Room Air 08/15/17 06:57 170/93 (118) 08/15/17 06:31 36.5 64 17 188/87 (120) 99 Room Air 08/15/17 03:30 36.4 67 18 168/77 (107) 99 Room Air 08/15/17 03:30 Room Air 08/15/17 03:21 174/94 08/15/17 03:02 62 18 195/91 98 Room Air 08/14/17 23:08 162/102 08/14/17 22:32 137/118 08/14/17 20:44 36.5 59 16 87/60 97 Room Air General Appearance: WD/WN, no apparent distress Head: normocephalic, atraumatic Eyes: normal inspection, sclerae normal ENT: hearing grossly normal, pharynx normal, + pertinent finding (mucous membranes moist) Neck: supple, no JVD, trachea midline Respiratory/Chest: lungs clear, normal breath sounds, no respiratory distress Cardiovascular: regular rate, rhythm, no murmur, normal peripheral pulses Abdomen/GI: normal bowel sounds, non tender, soft Back: no CVA tenderness, + pertinent finding (lumbar mid spine with well healed surgical incision without erythema/edema/discharge, non-tender to palpation. +tenderness to palpation left lateral lower lumbar region. + tenderness to palpation reproduced to left lower lumbar region with right rotation. negative bilateral leg raise.) Extremities/Musculoskelatal: no calf tenderness, normal capillary refill, no pedal edema, normal range of motion, non-tender Neurologic/Psych: alert, normal mood/affect, oriented x 3 Skin: normal color, warm/dry Laboratory Results Last 24 Hours Test 08/14/17 22:56 08/15/17 01:13 White Blood Count 7.94 K/uL Red Blood Count 4.47 M/uL Hemoglobin 11.1 g/dL Hematocrit 33.4 % Mean Corpuscular Volume 74.7 fL Mean Corpuscular Hemoglobin 24.8 pg Mean Corpuscular Hemoglobin Concent 33.2 g/dl Platelet Count 302 K/uL Mean Platelet Volume 8.8 fL Neutrophils (%) (Auto) 66.8 % Lymphocytes (%) (Auto) 19.5 % Monocytes (%) (Auto) 8.3 % Eosinophils (%) (Auto) 4.0 % Basophils (%) (Auto) 1.1 % Neutrophils # (Auto) 5.30 K/uL Lymphocytes # (Auto) 1.55 K/uL Monocytes # (Auto) 0.66 K/uL Eosinophils # (Auto) 0.32 K/uL Basophils # (Auto) 0.09 K/uL RDW Standard Deviation 44.2 fL RDW Coefficient of Variation 16.2 % Immature Granulocyte % (Auto) 0.3 % Immature Granulocyte # (Auto) 0.02 K/uL Sodium Level 135 mmol/L Potassium Level 3.2 mmol/L Chloride Level 101 mmol/L Carbon Dioxide Level 24 mmol/L Anion Gap 11.0 mmol/L Blood Urea Nitrogen 12 mg/dl Creatinine 0.93 mg/dl Est Creatinine Clear Calc Drug Dose 65.9 ml/min Estimated GFR () 72.7 Estimated GFR (Non- 62.7 BUN/Creatinine Ratio 12.7 Random Glucose 113 mg/dl Calcium Level 8.8 mg/dl Urine Color YELLOW Urine Appearance CLEAR Urine pH 5.5 Urine Specific [place] 1.011 Urine Protein NEG Urine Glucose (UA) NEG Urine Ketones NEG Urine Occult Blood NEG Urine Nitrite NEG Urine Bilirubin NEG Urine Urobilinogen NEG Urine Leukocyte Esterase MODERATE Urine WBC (Auto) 1-5 /hpf Urine RBC (Auto) 0-4 /hpf Urine Hyaline Casts (Auto) 1-5 /lpf Urine Epithelial Cells (Auto) 10-20 /lpf Urine Bacteria (Auto) NEG MRI L-SPINE: IMPRESSION: 1. Postsurgical changes the L4-5 level 2. Disc bulge and moderate spinal stenosis at the L3-4 level. There is also bilateral foraminal narrowing 3. Right lateral disc bulge/protrusion at the L2-3 level with right-sided foraminal narrowing. Assessment & Plan BACK PAIN Pt post op lumbar spinal decompression and fusion on 07/03/[address] Cohen. Past 2 weeks with L low back pain with radiation to left leg. MRI: 1. Postsurgical changes the L4-5 level. 2. Disc bulge and moderate spinal stenosis at the L3-4 level. There is also bilateral foraminal narrowing. 3. Right lateral disc bulge/protrusion at the L2-3 level with right-sided foraminal narrowing. -pain management per ortho -PT/OT as appropriate HTN Pt on Bystolic. Not formulary in hospital. -Metoprolol 50mg BID -Clonidine prn HTN -Monitor BP HYPOKALEMIA K: 3.2 -replace -monitor electrolytes HX RA No active flare or recent flares. Follows with Dr Nicole - CON[facility] Dumont -continue Lyrica, Cymbalta DVT Prophylaxis -SCD's for today in case ortho planning on a procedure Disposition admitted med/surg Full Code Follows with Dr Hernández for routine care Pt was seen with Dr Amado. See addendum Dr Amado will follow throughout remaining hospital course ATTENDING ADDENDUM care coordinated with CONNOR Vizcaino please refer to her notes for full details, I agree with her notes patient seen and examined, records reviewed by myself as well on exam, patient seen resting in bed states pain is under good control with medications denies chest pain, dyspnea, headaches no other symptoms VS noted and reviewed oriented x 3, not in distress, speaks in sentences with no effort nor accessory muscle use normal rate, regular rhythm, no murmurs clear breath sounds bilaterally non distended, soft, nontender no bipedal edema, erythema, warmth no neuro deficits k 3.2 crea 0.9 ASSESSMENT/PLAN> HYPERTENSION patient takes Nebivolol which is non formulary requested patient to have family bring it over tomorrow for now, Metoprolol 50mg BID add [id number] po daily asymptomatic monitor HYPOKALEMIA replaced monitor other diagnoses and plan of care as per CONNOR Vizcaino notes Thank you for this consultation. We will follow the patient with you during their hospital stay. You can reach a [facility] of [facility] 05/12 via pager @ [phone]. Jose Roberto Amado MD Additional Copies To Jose Hernández
[2017-08-15] MEDS ORDERED: POTASSIUM CHLORIDE 20 MEQ TABCR PO ONE (10:00)
--- NOTE | 2017-08-15 12:36 | History and Physical ---
History & Physical Date Aug 15, 2017. Chief Complaint Back and left leg pain History of Present Illness The patient is a 71 year old female with complaints of 2 weeks of severe left leg pain. She describes the pain is involving the left lumbosacral spine emanating down the lateral anterior left thigh. It does not extend below the knee. It has been there for approximately 2 weeks and progressive in nature. Markedly exacerbated with activity. The right lower extremity is asymptomatic. She denies any symptoms radiating below the knees. She denies any precipitating trauma fall or event. Past Medical/Surgical History Medical Problems: (1) Allergic rhinitis (2) Hiatal hernia (3) HTN (hypertension) (4) Hx of gastric ulcer (5) Lumbar stenosis with neurogenic claudication (6) Rheumatoid arthritis Surgical Problems: (1) History of back surgery (2) History of lumbar spinal fusion (3) History of tonsillectomy and adenoidectomy (4) Hx of hysterectomy (5) Spinal stenosis Additional History Hepatic Disease: No Endocrine Disorder: No Kidney Disease: No Hypertension: No Heart Disease: No Bleeding Tendencies: No Infectious Diseases: No Allergies Coded Allergies: Corticosteroids (Verified Adverse Reaction, Mild, night sweats, 08/15/17) Home Medications Scheduled Calcium (Calcium), 800 MG PO HS Cyclosporine (Ophth) (Restasis), 1 DROP OPL BID Duloxetine HCl (Cymbalta), 60 MG PO HS Duloxetine HCl (Cymbalta), 40 MG PO HS Esomeprazole Magnesium (Nexium), 40 MG PO HS Fish Oil ([place]-3), 2 CAP PO HS Folic Acid (Folvite), 6 MG PO QAM Lysine HCl (Lysine), Unknown Dose PO HS Methotrexate Sodium (Methotrexate), 8 TAB PO WK Nebivolol Hcl (Bystolic), 20 MG PO QAM Pregabalin (Lyrica), 75 MG PO BID [Allergy Injection], Unknown Dose INJ UD Scheduled PRN Oxycodone Hcl (Oxycodone Hcl), 5-10 MG PO Q4 PRN for Pain Physical Examination Skin: warm/dry, no rash Eyes: normal inspection, EOMI, sclerae normal ENT: normal ENT inspection, pharynx normal Head: normocephalic, atraumatic Neck: supple, no adenopathy, trachea midline Respiratory/Chest: lungs clear, normal breath sounds, no respiratory distress Cardiovascular: regular rate, rhythm, no edema, no murmur Abdomen / GI: normal bowel sounds, non tender Back: normal inspection Extremities: normal inspection, normal range of motion Neurologic/Psych: no motor/sensory deficits, alert, normal reflexes, oriented x 3 Addiitonal Comments: On exam she is in obvious distress as she sits up and tries to stand. She has immediate onset of pain causing her to sit down. It does affect the left lower extremity. Her lumbar spine spine incision is well-healed. There is no erythema no drainage. Is nontender to palpation. She has excellent strength testing bilateral lower extremities. There is decreased sensation along the left anterior thigh compared to the right. Diagnosis Severe spinal stenosis L3-4. Plan of Treatment Assessment adjacent level spinal stenosis L3-4. Plan at this time we will will obtain further imaging of the lumbar spine to include standing x-rays. Her MRI does show advanced adjacent level stenosis at L3-4. There is marked facet hypertrophy and obvious lateral recess and foraminal stenosis. Will make further recommendations upon review of films. I do suspect however she may require additional surgery to address L3-4 level. She is failed to respond to any oral steroids bed rest or pain medications.
--- NOTE | 2017-08-15 15:11 | EMERGENCY ROOM VISIT NOTE ---
History Report prepared by Yousuf: Dru Jalloh Under the Supervision of: Dr. Nii Rodrigez M.D. First contact with patient: 22:26 Chief Complaint: BACK PAIN Stated Complaint: HAD SURGERY 19- HAVING PAIN IN LEFT LEG AND BACK History of Present Illness The patient is a 71 year old female who presents to the Emergency Room with complaints of constant left leg pain beginning a few weeks ago. The patient states that she had back surgery a month and a half ago. She notes that she had a spinal stenosis, a herniated disc, a plate placed, and a cyst removed. She reports that she then had rehab for two weeks and did not have any pain. The patient states that she started to develop left leg pain a few weeks ago that feels as though someone is "sawing her leg." She notes that her doctor gave her a muscle relaxer and steroid with no relief. She reports that her pain has then started to radiate to her right but is not as bad as her left leg pain. The patient states that her pain worsens when she stands. She denies any urinary symptoms, fever, vomiting, and diarrhea. Source of History: patient Onset: a few weeks ago Position: leg (left) Timing: constant Modifying Factors (Worsening): other (standing) Associated Symptoms: No fevers, No vomiting, No diarrhea, No urinary symptoms Note: The patient also complains of right leg pain. Review of Systems See HPI for pertinent positives & negatives. A total of 10 systems reviewed and were otherwise negative. Past Medical & Surgical Medical Problems: (1) Allergic rhinitis (2) Hiatal hernia (3) HTN (hypertension) (4) Hx of gastric ulcer (5) Lumbar stenosis with neurogenic claudication (6) Rheumatoid arthritis Surgical Problems: (1) History of back surgery (2) History of lumbar spinal fusion (3) History of tonsillectomy and adenoidectomy (4) Hx of hysterectomy (5) Spinal stenosis Family History No pertinent family history stated. Social History Smoking Status: Never Smoker Marital Status: Housing Status: lives with family Occupation Status: retired Current/Historical Medications Scheduled Calcium (Calcium), 800 MG PO HS Cyclosporine (Ophth) (Restasis), 1 DROP OPL BID Duloxetine HCl (Cymbalta), 60 MG PO HS Duloxetine HCl (Cymbalta), 40 MG PO HS Esomeprazole Magnesium (Nexium), 40 MG PO HS Fish Oil ([place]-3), 2 CAP PO HS Folic Acid (Folvite), 6 MG PO QAM Lysine HCl (Lysine), Unknown Dose PO HS Methotrexate Sodium (Methotrexate), 8 TAB PO WK Nebivolol Hcl (Bystolic), 20 MG PO QAM Pregabalin (Lyrica), 75 MG PO BID [Allergy Injection], Unknown Dose INJ UD Scheduled PRN Oxycodone Hcl (Oxycodone Hcl), 5-10 MG PO Q4 PRN for Pain Allergies Coded Allergies: Corticosteroids (Verified Adverse Reaction, Mild, night sweats, 08/15/17) Physical Exam Vital Signs Date Time Temp Pulse Resp B/P (MAP) Pulse Ox O2 Delivery O2 Flow Rate FiO2 08/14/17 23:08 162/102 08/14/17 22:32 137/118 08/14/17 20:44 36.5 59 16 87/60 97 Room Air Physical Exam GENERAL: Patient is in no acute distress. HEENT: No acute trauma, normocephalic atraumatic, mucous membranes moist, no nasal congestion, no scleral icterus. NECK: No stridor, no adenopathy, no meningismus, trachea is midline. LUNGS: Clear to auscultation bilaterally, no wheeze, no rhonchi, breath sounds equal. HEART: 2/6 systolic murmur, regular rate and rhythm. BACK: No focal tenderness or bony stepoff to the lumbar spine, back pain does worsen with movement. ABDOMEN: Soft, nontender, bowel sounds positive, no hernias, no peritonitis. EXTREMITIES: No cyanosis or edema, full range of motion of all the joints without pain or difficulty, no signs for acute trauma. NEUROLOGIC: Oriented x 3, no acute motor or sensory deficits, no focal weakness. 2/4 patellar and Achilles reflexes bilaterally. SKIN: No rash, no jaundice, no diaphoresis. Medical Decision & Procedures ER Provider Diagnostic Interpretation: Radiology results as stated below per my review and radiologist interpretation: MRI L SPINE: Severe spinal canal stenosis in L3-L4 secondary to disc bulging, ligament flavum redundancy, prominent epidural fat, and moderate facet osteoarthrosis which causes buckling of the more distal nerve roots. This is slightly above the level of laminectomy seen from L4-L5. Moderate right neuroforaminal stenosis at L3-4 and L4-5. Radiologist: Blanca Montenegro MD Laboratory Results 08/14/17 22:56 Red Blood Count 4.47, Mean Corpuscular Volume 74.7, Mean Corpuscular Hemoglobin 24.8, Mean Corpuscular Hemoglobin Concent 33.2, Mean Platelet Volume 8.8, Neutrophils (%) (Auto) 66.8, Lymphocytes (%) (Auto) 19.5, Monocytes (%) (Auto) 8.3, Eosinophils (%) (Auto) 4.0, Basophils (%) (Auto) 1.1, Neutrophils # (Auto) 5.30, Lymphocytes # (Auto) 1.55, Monocytes # (Auto) 0.66, Eosinophils # (Auto) 0.32, Basophils # (Auto) 0.09 08/14/17 22:56 Test 08/14/17 22:56 08/15/17 01:13 White Blood Count 7.94 K/uL (4.8-10.8) Red Blood Count 4.47 M/uL (4.2-5.4) Hemoglobin 11.1 g/dL (12.0-16.0) Hematocrit 33.4 % (37-47) Mean Corpuscular Volume 74.7 fL (80-100) Mean Corpuscular Hemoglobin 24.8 pg (25-34) Mean Corpuscular Hemoglobin Concent 33.2 g/dl (32-36) Platelet Count 302 K/uL (130-400) Mean Platelet Volume 8.8 fL (7.4-10.4) Neutrophils (%) (Auto) 66.8 % Lymphocytes (%) (Auto) 19.5 % Monocytes (%) (Auto) 8.3 % Eosinophils (%) (Auto) 4.0 % Basophils (%) (Auto) 1.1 % Neutrophils # (Auto) 5.30 K/uL (1.4-6.5) Lymphocytes # (Auto) 1.55 K/uL (1.2-3.4) Monocytes # (Auto) 0.66 K/uL (0.11-0.59) Eosinophils # (Auto) 0.32 K/uL (0-0.5) Basophils # (Auto) 0.09 K/uL (0-0.2) RDW Standard Deviation 44.2 fL (36.4-46.3) RDW Coefficient of Variation 16.2 % (11.5-14.5) Immature Granulocyte % (Auto) 0.3 % Immature Granulocyte # (Auto) 0.02 K/uL (0.00-0.02) Anion Gap 11.0 mmol/L (3-11) Est Creatinine Clear Calc Drug Dose 65.9 ml/min Estimated GFR () 72.7 Estimated GFR (Non- 62.7 BUN/Creatinine Ratio 12.7 (10-20) Calcium Level 8.8 mg/dl (8.5-10.1) Urine Color YELLOW Urine Appearance CLEAR (CLEAR) Urine pH 5.5 (4.5-7.5) Urine Specific [place] 1.011 (1.000-1.030) Urine Protein NEG (NEG) Urine Glucose (UA) NEG (NEG) Urine Ketones NEG (NEG) Urine Occult Blood NEG (NEG) Urine Nitrite NEG (NEG) Urine Bilirubin NEG (NEG) Urine Urobilinogen NEG (NEG) Urine Leukocyte Esterase MODERATE (NEG) Urine WBC (Auto) 1-5 /hpf (0-5) Urine RBC (Auto) 0-4 /hpf (0-4) Urine Hyaline Casts (Auto) 1-5 /lpf (0-5) Urine Epithelial Cells (Auto) 10-20 /lpf (0-5) Urine Bacteria (Auto) NEG (NEG) Laboratory results reviewed by me. Medications Administered Medications (Trade) Dose Ordered Sig/[place] Route Start Time Stop Time Status Last Admin Dose Admin Morphine Sulfate (MoRPHine SULFATE INJ) 4 mg NOW STAT IV 08/14/17 22:35 08/14/17 22:38 DC 08/14/17 23:05 4 MG Ketorolac Tromethamine (Toradol Inj) 30 mg NOW STAT IV 08/14/17 22:35 08/14/17 22:38 DC 08/14/17 23:05 30 MG Ondansetron HCl (Zofran Inj) 4 mg NOW STAT IV 08/14/17 22:35 08/14/17 22:38 DC 08/14/17 23:04 4 MG Morphine Sulfate (MoRPHine SULFATE INJ) 4 mg Q15M PRN IV 08/15/17 00:30 08/15/17 04:16 DC 08/15/17 00:30 4 MG ED Course 7: The patient was evaluated in room C9. A complete history and physical exam was performed. 2233: I discussed the patient's case with Dr. Cohen - [facility]. He states that he will see the patient tomorrow at 1500. He requests an MRI and urine test on the patient since she is already in the emergency room. 5: Zofran Inj 4mg IV, Toradol Inj 30mg IV, Morphine Sulfate 4mg IV 0023: I reevaluated and updated the patient. She would like more pain medication. 0133: The patient's urine dip showed 1+ leukocytes but was otherwise negative. 0205: Upon reexamination the patient is stable. I discussed results and treatment plan with the patient. She verbalizes agreement and understanding. I spoke with Dr. Cohen - [facility]. We discussed the patient's results and findings. The patient will be evaluated by Dr. Cohen for further management. Medical Decision Differential diagnoses include: infection, abscess, recurrent disc herniation, hematoma, edema, musculoskeletal pain, nerve impingement, and UTI. There is no leukocytosis or concerning anemia. No significant electrolyte abnormality or kidney failure. Urinalysis does not show any obvious infection. MRI of the lumbar spine shows a new area of severe spinal stenosis above the surgical site. There is disc disease present as well. The patient received IV Toradol, IV Zofran and IV morphine. The morphine has helped her pain. I discussed the case with the spinal surgeon nursing education consultant, admission/observation was recommended. I talked to the patient and case management. Medication Reconcilliation Current Medication List: was personally reviewed by me Blood Pressure Screening Patient's blood pressure: Elevated blood pressure Blood pressure disposition: Referred to PCP Consults Time Called: 2229 Consulting Physician: Dr. Cohen - [facility] Returned Call: [phone] I discussed the patient's case with Dr. Cohen. He states that he will see the patient tomorrow at 1500. He requests an MRI and urine test on the patient since she is already in the emergency room. 5: I spoke to Dr. Cohen again. Discussed the patient's case. The patient will be evaluated for further management. Impression Primary Impression: Spinal stenosis Additional Impressions: Lumbar disc disease Left leg pain Status post lumbar surgery Scribe Attestation The scribe's documentation has been prepared under my direction and personally reviewed by me in its entirety. I confirm that the note above accurately reflects all work, treatment, procedures, and medical decision making performed by me. Departure Information Dispostion Being Evaluated By Surgeon Referrals Jose Hernández (PCP) Patient Instructions My [facility] Health Problem Qualifiers
[2017-08-15] MEDS: CLONIDINE HCL 0.1 MG TAB PO PRN ×2 (15:22→23:17)
[2017-08-15] MEDS ORDERED: AMLODIPINE BESYLATE 5 MG TAB PO ONE (16:45)
[2017-08-15] MEDS ORDERED: LIDODERM (LIDOCAINE) PATCH 5% TD ONE (16:57)
--- NOTE | 2017-08-15 18:23 | DIAGNOSTIC IMAGING REPORT ---
STANDING LUMBAR SPINE RADIOGRAPHS CLINICAL HISTORY: Back and leg pain. COMPARISON: Lumbar spine radiographs July 04, 2017 and lumbar spine MRI August 15, 2017. FINDINGS: There is mild leftward curvature of the lumbar spine. The patient is status post L4-L5 discectomy with posterior decompression bilateral pedicle screw fusion. Hardware appears intact. There are no unexpected radiopaque foreign bodies. There is moderate disc space narrowing at L2-L3. There is no acute fracture. IMPRESSION: 1. Status post L4-L5 discectomy and bilateral pedicle screw fusion. 2. Mild levoscoliosis of the lumbar spine. 3. Moderate disc space narrowing at L2-L3. Electronically signed by: Hua Mitchell M.D. 08/15/2017 6:21 PM Dictated Date/Time: 08/15/2017 6:19 PM
[2017-08-15] MEDS: DULOXETINE HCL 20 MG CAP PO SCH (21:07)
[2017-08-15] MEDS: DOCUSATE SODIUM 100 MG CAP PO SCH (21:07)
[2017-08-15] MEDS: DULOXETINE (CYMBALTA) 30 MG CAP PO SCH (21:07)
[2017-08-15] MEDS: METOPROLOL TARTRATE 50 MG TAB PO SCH (21:07)
[2017-08-15] MEDS ORDERED: CALCIUM CARBONATE 500 MG CHEWABLE PO PRN (21:30)
[2017-08-16 06:37] LABS: HEMATOCRIT 33.6 % (37-47); HEMOGLOBIN 10.5 g/dL (12.0-16.0); MEAN CELL VOLUME 74.8 fL (80-100); MEAN CORPUSCULAR HEMOGLOBIN 23.4 pg (25-34); MEAN CORPUSCULAR HGB CONC 31.3 g/dl (32-36); MEAN PLATELET VOLUME 8.8 fL (7.4-10.4); PLATELET COUNT 238 K/uL (130-400); RED CELL DISTRIBUTION WIDTH CV 16.2 % (11.5-14.5); RED CELL DISTRIBUTION WIDTH SD 43.9 fL (36.4-46.3); WHITE BLOOD COUNT 4.29 K/uL (4.8-10.8)
[2017-08-16 07:14] LABS: CALCIUM 9.1 mg/dl (8.5-10.1); CREATININE 0.59 mg/dl (0.60-1.20); POTASSIUM 4.2 mmol/L (3.5-5.1)
[2017-08-16 07:30] VITALS: O2SAT 99
[2017-08-16] MEDS: OXYCODONE HCL IR 5 MG TAB (IMMEDIATE RELEASE) PO PRN ×3 (07:39→19:18)
[2017-08-16 07:50] VITALS: BP 136/54; PULSE 56; TEMP 36.5; O2SAT 99
[2017-08-16] MEDS ORDERED: AMLODIPINE BESYLATE 5 MG TAB PO SCH (09:00)
[2017-08-16] MEDS: METOPROLOL TARTRATE 50 MG TAB PO SCH ×2 (09:00→21:11)
[2017-08-16] MEDS: PREGABALIN 75 MG CAP PO SCH ×2 (09:20→21:10)
[2017-08-16] MEDS: DOCUSATE SODIUM 100 MG CAP PO SCH ×2 (09:21→21:00)
[2017-08-16] MEDS: LIDODERM (LIDOCAINE) PATCH 5% TD SCH (09:25)
[2017-08-16 09:26] VITALS: BP 112/71; PULSE 58
--- NOTE | 2017-08-16 14:24 | Progress Note ---
Progress Note Date of Service Aug 16, 2017. Progress Note Patient continues to note severe L3 radiculopathy with any standing and ambulation. Continue to be limited nature. She is comfortable in supine. On exam she demonstrates good strength testing negative logroll. But again the markedly uncomfortable since we stand her up and begin ambulation. Assessment spinal stenosis L2-3 L3-4 with disc herniation L3-4. Plan at this time she is markedly uncomfortable and like to pursue surgical intervention. Would require a decompression fusion L3-4 possibly L2-3. We would remove the instrumentation at L4-5 to extend it proximally. All questions were addressed. Patient will be made n.p.o. after midnight.
[2017-08-16 15:39] VITALS: BP 135/72; PULSE 60; TEMP 36.7; O2SAT 96
--- NOTE | 2017-08-16 18:20 | Progress Note ---
Medicine Progress Note Date & Time of Visit: Aug 16, 2017 at 18:16. Subjective Seen resting in bed comfortable watching TV Still has left-sided sciatica pain about the same as yesterday No chest pain shortness of breath palpitations dizziness No other symptoms Objective Last 8 Hrs Date Time Temp Pulse Resp B/P (MAP) Pulse Ox O2 Delivery O2 Flow Rate FiO2 08/16/17 16:00 Room Air 08/16/17 15:39 36.7 60 18 135/72 (93) 96 Room Air Physical Exam: General-oriented 3 not in distress speaking sentences Eyes- anicteric ENT- oropharynx clear Neck- supple, no JVD Lungs- clear to auscultation bilaterally no rales wheezes Heart- regular rhythm; no murmur, normal rate Abdomen- normal bowel sounds, soft, nontender, nondistended Extremities- no pretibial edema, no calf tenderness; peripheral pulses intact Neuro- alert, oriented x 3; no gross focal neuro deficits Skin- warm & dry Laboratory Results: Last 24 Hours Test 08/16/17 06:03 White Blood Count 4.29 K/uL Red Blood Count 4.49 M/uL Hemoglobin 10.5 g/dL Hematocrit 33.6 % Mean Corpuscular Volume 74.8 fL Mean Corpuscular Hemoglobin 23.4 pg Mean Corpuscular Hemoglobin Concent 31.3 g/dl RDW Standard Deviation 43.9 fL RDW Coefficient of Variation 16.2 % Platelet Count 238 K/uL Mean Platelet Volume 8.8 fL Sodium Level 136 mmol/L Potassium Level 4.2 mmol/L Chloride Level 101 mmol/L Carbon Dioxide Level 28 mmol/L Anion Gap 7.0 mmol/L Blood Urea Nitrogen 9 mg/dl Creatinine 0.59 mg/dl Est Creatinine Clear Calc Drug Dose 103.9 ml/min Estimated GFR () 108.4 Estimated GFR (Non- 93.5 BUN/Creatinine Ratio 14.7 Random Glucose 98 mg/dl Calcium Level 9.1 mg/dl Assessment & Plan BACK PAIN Pt post op lumbar spinal decompression and fusion on 07/03/[address] Cohen. Past 2 weeks with L low back pain with radiation to left leg. MRI: 1. Postsurgical changes the L4-5 level. 2. Disc bulge and moderate spinal stenosis at the L3-4 level. There is also bilateral foraminal narrowing. 3. Right lateral disc bulge/protrusion at the L2-3 level with right-sided foraminal narrowing. Plan for surgical intervention tomorrow Patient is a moderate risk for cardiopulmonary complications given age and medical history No medical contraindication to proceed with surgery HTN Last dose of metoprolol p.o. tonight, then discontinue Transition to by nebivolol 20 mg p.o. daily tomorrow monitor closely HYPOKALEMIA K: 3.2 Resolved -monitor electrolytes HX RA No active flare or recent flares. Follows with Dr Nicole - CONNOR Dumont -continue Lyrica, Cymbalta DVT Prophylaxis -SCD's Thank you for this consultation. We will follow the patient with you during their hospital stay. You can reach a member of the [facility] Hospitalist Team 05/12 via pager @ [phone]. Current Inpatient Medications: Current Inpatient Medications Medications (Trade) Dose Ordered Sig/Selwyn Route Start Time Stop Time Status Last Admin Dose Admin Oxycodone HCl (Roxicodone Immediate Rel Tab) 5 mg Q4H PRN PO 08/15/17 02:30 08/29/17 02:29 08/16/17 12:54 5 MG Hydromorphone HCl (Dilaudid Inj) 1 mg Q4H PRN IV 08/15/17 02:30 08/29/17 02:29 08/15/17 19:59 1 MG Miscellaneous (Iv Fluids Completed) 1 ea PRN PRN N/A 08/15/17 04:15 08/15/18 04:14 Duloxetine HCl (Cymbalta Cap) 40 mg HS PO 08/15/17 21:00 09/14/17 20:59 08/15/17 21:07 40 MG Duloxetine HCl (Cymbalta Cap) 60 mg HS PO 08/15/17 21:00 09/14/17 20:59 08/15/17 21:07 60 MG Pregabalin (Lyrica Cap) 75 mg BID PO 08/15/17 09:00 09/14/17 08:59 08/16/17 09:20 75 MG Clonidine HCl (Catapres Tab) 0.1 mg Q6H PRN PO 08/15/17 07:45 09/14/17 07:44 08/15/17 23:17 0.1 MG Metoprolol Tartrate (Lopressor Tab) 50 mg BID PO 08/15/17 21:00 08/16/17 23:59 08/15/17 21:07 50 MG Magnesium Hydroxide (Milk Of Magnesia Susp) 30 ml Q6H PRN PO 08/15/17 09:15 09/14/17 09:14 Acetaminophen (Tylenol Tab) 650 mg Q4H PRN PO 08/15/17 09:45 09/14/17 09:44 Ondansetron HCl (Zofran Inj) 4 mg Q6H PRN IV 08/15/17 09:45 09/14/17 09:44 Docusate Sodium (coLACE CAP) 100 mg BID PO 08/15/17 21:00 09/14/17 20:59 08/16/17 09:21 100 MG Lidocaine (Lidoderm Patch 5%) 1 patch QAM TD 08/16/17 09:00 09/15/17 08:59 08/16/17 09:25 1 PATCH Miscellaneous (Remove Lidoderm Patch) 1 ea DAILY@21 N/A 08/15/17 21:00 09/14/17 20:59 Calcium Carbonate (Tums Chew Tab) 500 mg QID PRN PO 08/15/17 21:30 09/14/17 21:29 08/15/17 21:52 500 MG
[2017-08-16] MEDS: HYDROmorphone INJ 2 MG/ML SYR/VIAL IV PRN (20:57)
[2017-08-16 21:09] VITALS: BP 166/85; PULSE 64
[2017-08-16] MEDS: DULOXETINE HCL 20 MG CAP PO SCH (21:11)
[2017-08-16] MEDS: DULOXETINE (CYMBALTA) 30 MG CAP PO SCH (21:11)
[2017-08-16 23:31] VITALS: BP 147/84; PULSE 62; TEMP 36.6; O2SAT 90
[2017-08-17] VITALS (9 sets, daily range): BP systolic 109–152; BP diastolic 66–82; PULSE 62–84; TEMP 36.3–36.9; O2SAT 93–100
[2017-08-17] MEDS: HYDROmorphone INJ 2 MG/ML SYR/VIAL IV PRN ×2 (04:26→09:05)
[2017-08-17] MEDS: DOCUSATE SODIUM 100 MG CAP PO SCH ×2 (08:53→20:44)
[2017-08-17] MEDS: PREGABALIN 75 MG CAP PO SCH ×2 (08:53→20:44)
[2017-08-17] MEDS: LIDODERM (LIDOCAINE) PATCH 5% TD SCH (08:57)
[2017-08-17] MEDS ORDERED: BYSTOLIC PO SCH (09:00)
[2017-08-17] MEDS ORDERED: FENTANYL CITRATE INJ 50 MCG/1 ML 2 ML VIAL ONE ×2 (12:50→13:48)
[2017-08-17] MEDS ORDERED: MIDAZOLAM HCL 1 MG/ML 2ML VIAL ONE (12:50)
[2017-08-17] MEDS ORDERED: ATROPINE SULFATE 0.1 MG/ML 5ML SYR IV PRN (13:00)
[2017-08-17] MEDS ORDERED: ONDANSETRON INJ 2 MG/ML 2 ML VIAL IV PRN ×2 (13:00→15:15)
[2017-08-17] MEDS ORDERED: EpHEDrine SULFATE INJ 50 MG/ML AMP IV PRN (13:00)
[2017-08-17] MEDS ORDERED: HYDROmorphone INJ 1 MG/ML SYR IV PRN (13:00)
[2017-08-17] MEDS ORDERED: BUPIVACAINE/EPINEPHRINE 0.5% MPF 1:200,000 30 ML VIAL ONE (13:06)
[2017-08-17] MEDS ORDERED: BACITRACIN 50000 UNIT VIAL ONE (13:07)
[2017-08-17] MEDS ORDERED: SCOPOLAMINE 1.5 MG TDSY TD ONE (13:16)
[2017-08-17] MEDS ORDERED: CEFAZOLIN SOD 2000MG/15 ML IV PUSH IV ONE (13:20)
[2017-08-17] MEDS ORDERED: SCOPOLAMINE 1.5 MG TDSY TD SCH (13:30)
[2017-08-17] MEDS ORDERED: HYDROmorphone INJ 2 MG/ML SYR/VIAL ONE (13:48)
[2017-08-17] MEDS ORDERED: ONDANSETRON INJ 2 MG/ML 2 ML VIAL ONE (14:11)
[2017-08-17] MEDS ORDERED: NEOSTIGMINE METHYLSULFATE 1 MG/ML 10ML VIAL ONE (14:11)
[2017-08-17] MEDS ORDERED: DEXAMETHASONE SOD INJ 4 MG/ML VIAL ONE ×2 (14:11→14:12)
[2017-08-17] MEDS ORDERED: PROPOFOL IV EMULSION 10 MG/ML 20 ML VIAL IV ONE (14:11)
[2017-08-17] MEDS ORDERED: LIDOCAINE HCL 2% 2 ML VIAL (20MG/ML) ONE (14:11)
[2017-08-17] MEDS ORDERED: GLYCOPYRROLATE INJ 0.2 MG/ML VIAL ONE ×3 (14:11→14:58)
[2017-08-17] MEDS ORDERED: ROCURONIUM BROMIDE 10 MG/ML 5 ML VIAL IV ONE (14:20)
[2017-08-17] MEDS ORDERED: FLOSEAL HEMOSTATIC MATRIX 10ML TOP ONE (14:53)
[2017-08-17] MEDS ORDERED: SODIUM CHLORIDE 0.9% 1000ML 1,000 ML IV SCH (15:03)
--- NOTE | 2017-08-17 15:03 | [facility] Operative Report ---
Operative Report Operative Date Aug 17, 2017. Pre-Operative Diagnosis Lumbar spinal stenosis Post-Operative Diagnosis Same Procedure(s) Performed 1. Removal of posterior instrumentation L4-5. #2 expiration of fusion L4-5. #3 lumbar decompression medial facetectomies foraminotomies L2-3 L3-4. #4 posterior spinal fusion L2-3 L3-4. #5 placement posterior segmental instrumentation L2-3 L3-4 L4-5. #6 interbody fusion L3-4. #7 placement peek cage 12 x 26 mm at L3-4. #8 placement of locally harvested morselized autograft L2-3 L3-4 #9 placement InFUSE collagen sponge, mass graft in the posterior lateral gutters and ostial amp in the interbody space. Surgeon lin Brand Advisor Surgeon(s) Malcom Estimated Blood Loss 200 Findings Severe spinal stenosis Description of Procedure Patient was met with preoperatively case discussed all questions addressed. After informed consent obtained patient was taken to the operative suite underwent intubation and placed in a prone position on the Arthur table on top of the Ravinder frame. All bony prominences well-padded eyes inspected to ensure no external pressure placed upon the. This point the lumbar spine was prepped and draped in the normal sterile fashion. Sharp dissection with the assistance of Bovie cautery was performed down to and exposing the lamina and transverse processes of L2-L3 and instrumentation L4-5 bilaterally. I then removed to the end caps and rods bilaterally during fusion still maturing in the posterior gutters. Then performed a complete laminectomy of L3 and L2 addressing severe lateral recess stenosis and foraminal disease. Pedicle screws then placed at L2 -L3 bilaterally and a janet placed from L2-L5 bilaterally. Through a transforaminal approach on the left complete discectomy of L3-4 was performed endplates created to subcortical bleeding bone and a 12 x 26 mm peek cage filled with ostial amp bone graft tapped in position. Rods were then compressed locked into final position bilaterally. Cross-link locked in place. The transverse processes of L2-L3-L4 burred to subcortical bleeding bone. Infuse collagen sponge mass graft and locally harvested morselized autograft placed in the posterior gutters. 15 round JEFF drain inserted. Incision was then closed with 1 Vicryl fascia 2-0 Vicryl substantially 4-0 Monocryl finals closure Steri-Strips sterile dressings placed. Patient will continue to PACU stable condition. Please note [place] was present throughout the entire procedure involved in patient positioning complex portions of the surgery and fashion closure. I attest to the content of the Intraoperative Record and any orders documented therein. Any exceptions are noted below.
--- NOTE | 2017-08-17 15:12 | DIAGNOSTIC IMAGING REPORT ---
INTRAOPERATIVE RADIOGRAPHS CLINICAL HISTORY: Lumbar spinal fusion. Fluoroscopy time: 16 seconds. FINDINGS: 3 spot fluoroscopic views of the lumbar spine are presented. There has been discectomy at L3-L4 and L4-L5 with laminectomy and posterior fusion from L2 -L5. Interpedicular screws are present at all levels. Orthopedic hardware appears intact. IMPRESSION: Intraoperative images from L2 -L5 spinal fusion as above. Electronically signed by: Nii Rodríguez M.D. 08/17/2017 3:11 PM Dictated Date/Time: 08/17/2017 3:10 PM
[2017-08-17] MEDS ORDERED: SOD PHOSPHATE/SOD BIPHOSPHATE ENEMA 132 ML BTL PR PRN (15:15)
[2017-08-17] MEDS ORDERED: METOCLOPRAMIDE HCL INJ 5 MG/ML 2 ML VIAL IV PRN (15:15)
[2017-08-17] MEDS ORDERED: LORAZEPAM 0.5 MG TAB PO PRN (15:15)
[2017-08-17] MEDS ORDERED: NALOXONE HCL 0.4 MG/1 ML VIAL/CARP IV PRN ×2 (15:15)
[2017-08-17] MEDS ORDERED: ACETAMINOPHEN IV 100 ML IV PRN (15:15)
[2017-08-17] MEDS ORDERED: MAGNESIUM HYDROXIDE SUSP 30 ML UDC PO PRN (15:15)
[2017-08-17] MEDS ORDERED: DO NOT ADMINISTER FLU VACCINE PRN (15:15)
[2017-08-17] MEDS ORDERED: PROMETHAZINE HCL INJ 12.5 MG in SODIUM CHLORIDE 0.9% 50ML 50 ML IV PRN (15:15)
[2017-08-17] MEDS ORDERED: ALUMINUM/MAGNESIUM SUSP 30 ML UDC PO PRN (15:15)
[2017-08-17] MEDS ORDERED: hydrOXYzine HCL 25 MG TAB PO PRN (15:15)
[2017-08-17] MEDS ORDERED: FAMOTIDINE 20 MG TAB PO PRN (15:15)
[2017-08-17] MEDS ORDERED: ACETAMINOPHEN 500 MG TAB PO PRN (15:15)
[2017-08-17] MEDS ORDERED: LORAZEPAM INJ 0.5 MG in SYRINGE 0.75 ML IV PRN (15:15)
[2017-08-17] MEDS ORDERED: CEFAZOLIN IV 2,000 MG in DEXTROSE 5% 50ML 50 ML IV SCH (15:15)
[2017-08-17] MEDS ORDERED: DO NOT ADMINISTER PNEUMOCOCCAL VACCINE PRN (15:15)
[2017-08-17] MEDS ORDERED: BISACODYL 10 MG SUPP PR PRN (15:15)
[2017-08-17] MEDS ORDERED: PHENYLEPHRINE 100MCG/ML 5ML SYR ONE (15:32)
[2017-08-17] MEDS: FENTANYL CITRATE INJ 50 MCG/1 ML 2 ML VIAL IV PRN ×4 (15:32→15:47)
[2017-08-17] MEDS: HYDROmorphone HCL 0.5MG/ML 50 ML CASSETTE IV PRN ×3 (15:33→22:53)
[2017-08-17] MEDS: CHECK SCOPOLAMINE PATCH PLACEMENT SCH ×2 (16:00→23:44)
[2017-08-17] MEDS ORDERED: HYDROmorphone INJ 0.5 MG/0.5 ML SYR ONE (16:04)
--- NOTE | 2017-08-17 16:29 | Anesthesiology Progress Note ---
Anesthesia Post Op Note Date & Time Aug 17, 2017 at 16:28 Vital Signs Pain Intensity: 5 Vital Signs Past 12 Hours Date Time Temp Pulse Resp B/P (MAP) Pulse Ox O2 Delivery O2 Flow Rate FiO2 08/17/17 16:06 146/76 08/17/17 16:03 73 8 08/17/17 16:03 73 8 100 08/17/17 16:01 36.3 76 16 146/76 (106) 100 Nasal Cannula 4 08/17/17 16:01 136/72 08/17/17 15:58 77 8 100 08/17/17 15:58 77 8 08/17/17 15:57 79 15 08/17/17 15:57 79 15 94 08/17/17 15:56 137/67 08/17/17 15:52 75 12 100 08/17/17 15:52 75 12 08/17/17 15:51 149/74 08/17/17 15:49 77 16 08/17/17 15:49 77 16 100 08/17/17 15:48 79 13 08/17/17 15:48 79 13 64 08/17/17 15:46 141/72 08/17/17 15:43 72 9 100 08/17/17 15:43 73 9 08/17/17 15:41 152/76 08/17/17 15:38 73 16 100 08/17/17 15:38 73 16 08/17/17 15:36 153/77 08/17/17 15:33 64 6 100 08/17/17 15:33 65 6 08/17/17 15:28 73 13 08/17/17 15:28 73 13 100 08/17/17 15:27 137/81 08/17/17 15:23 79 18 169/87 92 08/17/17 15:23 82 18 08/17/17 15:23 36.3 81 16 169/87 (117) 93 Oxymask 10 08/17/17 08:00 Room Air 08/17/17 07:51 36.9 62 16 127/82 (97) 95 Room Air Notes Mental Status: alert / awake / arousable, participated in evaluation Pt Amnestic to Procedure: Yes Nausea / Vomiting: adequately controlled Pain: adequately controlled Airway Patency, RR, SpO2: stable & adequate BP & HR: stable & adequate Hydration State: stable & adequate Anesthetic Complications: no major complications apparent
--- NOTE | 2017-08-17 17:45 | Progress Note ---
Medicine Progress Note Date & Time of Visit: Aug 17, 2017 at 17:42. Subjective Status post back surgery today Seen patient room 302 Awake alert oriented 3 in good spirits States she has pain/soreness on back surgical site Denies headache dizziness chest pain shortness of breath palpitations nausea No other symptoms Objective Last 8 Hrs Date Time Temp Pulse Resp B/P (MAP) Pulse Ox O2 Delivery O2 Flow Rate FiO2 08/17/17 17:31 36.4 70 18 131/72 (91) 98 Nasal Cannula 4.0 08/17/17 17:05 36.5 70 16 129/77 (94) 100 Nasal Cannula 08/17/17 17:02 Nasal Cannula 4.0 18 16:35 36.3 79 16 123/76 (92) 95 Nasal Cannula 4.0 08/17/17 16:27 79 12 18 16:27 12 18 16:26 131/68 18 16:22 71 9 97 18 16:22 71 9 18 16:21 116/69 08/17/17 16:17 78 12 98 18 16:17 78 12 18 16:16 146/76 18 16:12 70 6 /18 16:12 70 6 100 18 16:11 125/70 08/17/17 16:07 78 13 100 18 16:07 77 13 18 16:06 146/76 18 16:03 73 8 18 16:03 73 8 100 18 16:01 36.3 76 16 146/76 (106) 100 Nasal Cannula 4 08/17/17 16:01 136/72 18 15:58 77 8 100 18 15:58 77 8 18 15:57 79 15 18 15:57 79 15 94 18 15:56 137/67 18 15:52 75 12 100 18 15:52 75 12 18 15:51 149/74 18 15:49 77 16 18 15:49 77 16 100 18 15:48 79 13 4/5/18 15:48 79 13 64 08/17/17 15:46 141/72 08/17/17 15:43 72 9 100 08/17/17 15:43 73 9 08/17/17 15:41 152/76 08/17/17 15:38 73 16 100 08/17/17 15:38 73 16 08/17/17 15:36 153/77 08/17/17 15:33 64 6 100 08/17/17 15:33 65 6 08/17/17 15:28 73 13 08/17/17 15:28 73 13 100 08/17/17 15:27 137/81 08/17/17 15:23 79 18 169/87 92 08/17/17 15:23 82 18 08/17/17 15:23 36.3 81 16 169/87 (117) 93 Oxymask 10 Physical Exam: General-oriented 3 not in distress speaking sentences Neck-no JVD Lungs- clear breath sounds bilaterally Heart- regular rhythm; no murmur, normal rate Abdomen- normal bowel sounds, soft, nontender, nondistended Extremities- no pretibial edema, no calf tenderness; peripheral pulses intact Neuro- alert, oriented x 3; no gross focal neuro deficits Skin- warm & dry Assessment & Plan BACK PAIN Pt post op lumbar spinal decompression and fusion on 07/03/[address] Cohen. Past 2 weeks with L low back pain with radiation to left leg. MRI: 1. Postsurgical changes the L4-5 level. 2. Disc bulge and moderate spinal stenosis at the L3-4 level. There is also bilateral foraminal narrowing. 3. Right lateral disc bulge/protrusion at the L2-3 level with right-sided foraminal narrowing. Status post back surgery Postop day #0 Stable overall Continue to monitor blood pressure Labs tomorrow HTN Transitioned to usual nebivolol 20 mg p.o. daily in the morning As needed clonidine HYPOKALEMIA K: 3.2 Resolved -monitor electrolytes HX RA No active flare or recent flares. Follows with Dr Nicole - CONNOR Dumont -continue Lyrica Cymbalta DVT Prophylaxis Deferred to orthopedic service Thank you for this consultation. We will follow the patient with you during their hospital stay. You can reach a member of the [facility] Hospitalist Team 05/12 via pager @ [phone]. Current Inpatient Medications: Current Inpatient Medications Medications (Trade) Dose Ordered Sig/Selwyn Route Start Time Stop Time Status Last Admin Dose Admin Miscellaneous (Iv Fluids Completed) 1 ea PRN PRN N/A 08/15/17 04:15 08/15/18 04:14 Duloxetine HCl (Cymbalta Cap) 40 mg HS PO 08/15/17 21:00 09/14/17 20:59 08/16/17 21:11 40 MG Duloxetine HCl (Cymbalta Cap) 60 mg HS PO 08/15/17 21:00 09/14/17 20:59 08/16/17 21:11 60 MG Pregabalin (Lyrica Cap) 75 mg BID PO 08/15/17 09:00 09/14/17 08:59 08/16/17 21:10 75 MG Clonidine HCl (Catapres Tab) 0.1 mg Q6H PRN PO 08/15/17 07:45 09/14/17 07:44 08/15/17 23:17 0.1 MG Docusate Sodium (coLACE CAP) 100 mg BID PO 08/15/17 21:00 09/14/17 20:59 08/16/17 09:21 100 MG Lidocaine (Lidoderm Patch 5%) 1 patch QAM TD 08/16/17 09:00 09/15/17 08:59 08/17/17 08:57 1 PATCH Miscellaneous (Remove Lidoderm Patch) 1 ea DAILY@21 N/A 08/15/17 21:00 09/14/17 20:59 08/16/17 21:06 1 EA Calcium Carbonate (Tums Chew Tab) 500 mg QID PRN PO 08/15/17 21:30 09/14/17 21:29 08/15/17 21:52 500 MG Nebivolol (Bystolic) 20 mg DAILY PO 08/18/17 09:00 09/16/17 08:59 Fentanyl Citrate (Fentanyl Inj) 50 mcg Q5M PRN IV 08/17/17 13:00 08/17/17 18:00 08/17/17 15:47 50 MCG Hydromorphone HCl (Dilaudid Inj) 0.5 mg Q5M PRN IV 08/17/17 13:00 08/17/17 18:00 4/5/18 16:05 0.5 MG Ondansetron HCl (Zofran Inj) 4 mg ONE PRN IV 08/17/17 13:00 08/17/17 18:00 Ephedrine Sulfate (EpHEDrine SULFATE INJ) 5 mg Q5M PRN IV 08/17/17 13:00 08/17/17 18:00 Atropine Sulfate (Atropine Sulfate 0.1mg/ml Inj) 0.5 mg Q1M PRN IV 08/17/17 13:00 08/17/17 18:00 Miscellaneous (Remove Transderm-Scop Patch) 1.5 ea Q48H N/A 08/19/17 13:29 08/19/17 13:30 Miscellaneous Information (Check Scopolamine Patch Placement) 1 ea QS N/A 08/17/17 16:00 08/19/17 13:30 08/17/17 16:00 1 EA Dexamethasone Sodium Phosphate 6 mg/Syringe 1.5 ml @ 1 mls/min Q8H IV 08/17/17 20:00 08/18/17 12:02 Promethazine HCl 12.5 mg/Sodium Chloride 50.5 ml @ 202 mls/hr Q6H PRN IV 08/17/17 15:15 09/16/17 15:14 Ondansetron HCl (Zofran Inj) 4 mg Q6H PRN IV 08/17/17 15:15 09/16/17 15:14 Metoclopramide HCl (Reglan Inj) 10 mg Q6H PRN IV 08/17/17 15:15 09/16/17 15:14 Lorazepam (Ativan Tab) 0.5 mg Q8H PRN PO 08/17/17 15:15 09/16/17 15:14 Lorazepam 0.5 mg/ Syringe 1 ml @ 1 mls/min Q8H PRN IV 08/17/17 15:15 09/16/17 15:14 Pneumococcal Polysaccharide Vaccine 1 ea PRN PRN N/A 08/17/17 15:15 09/16/17 15:14 Influenza Virus Vacc Triv Types A&B 1 ea PRN PRN N/A 08/17/17 15:15 09/16/17 15:14 Polyethylene (Miralax Powder Packet) 17 gm Q6 PO 08/19/17 06:00 09/18/17 05:59 Bisacodyl (Dulcolax Supp) 10 mg DAILY PRN TN 08/17/17 15:15 09/16/17 15:14 Magnesium Hydroxide (Milk Of Magnesia Susp) 30 ml DAILY PRN PO 08/17/17 15:15 09/16/17 15:14 Hydromorphone HCl (Dilaudid Inj) 0.5-1mg prn moder... Q3H PRN IV 08/18/17 06:00 09/01/17 05:59 Oxycodone HCl (Roxicodone Immediate Rel Tab) 5-10mg prn moderate to sev... Q4H PRN PO 08/18/17 06:00 09/01/17 05:59 Sodium Chloride 1,000 ml @ 150 mls/hr Q6H40M IV 08/17/17 15:03 09/16/17 15:02 Acetaminophen (Tylenol Tab) 1,000 mg Q8H PRN PO 08/17/17 15:15 09/16/17 15:14 Acetaminophen 100 ml @ 400 mls/hr Q8H PRN IV 08/17/17 15:15 09/16/17 15:14 Naloxone HCl (Narcan Inj) 0.1 mg Q5M PRN IV 08/17/17 15:15 09/16/17 15:14 Senna/Docusate Sodium (Senokot S Tab) 2 tab HS PO 08/17/17 21:00 09/16/17 20:59 Sodium Biphosphate/ Sodium Phosphate (Fleet Enema) 132 ml ONE PRN TN 08/17/17 15:15 09/16/17 15:14 Hydroxyzine HCl (Vistaril Tab) 25 mg Q8H PRN PO 08/17/17 15:15 09/16/17 15:14 Al Hydroxide/Mg Hydroxide (Maalox Susp) 30 ml Q6H PRN PO 08/17/17 15:15 09/16/17 15:14 Famotidine (Pepcid Tab) 20 mg Q12 PRN PO 08/17/17 15:15 09/16/17 15:14 Diphenhydramine HCl (Benadryl Cap) 25 mg Q6H PRN PO 08/17/17 15:15 09/16/17 15:14 Miscellaneous Information (Discontinue CASINO CASHIER MANAGER) 1 ea 0600 ONCE N/A 08/18/17 06:00 08/18/17 06:01 Naloxone HCl (Narcan Inj) 0.1 mg Q5M PRN IV 08/17/17 15:15 08/18/17 06:00 Hydromorphone HCl (Dilaudid Engineering Teacher) 25 mg PRN PRN IV 08/17/17 15:15 08/18/17 06:00 08/17/17 16:38 25 MG Sodium Chloride 1,000 ml @ 15 mls/hr Q24H IV 08/17/17 15:03 08/18/17 06:00 Cefazolin Sodium 2000 mg/Syringe 15 ml @ 3.75 mls/ min Q8H IV 08/17/17 22:00 08/18/17 06:03
[2017-08-17] MEDS: DEXAMETHASONE INJ 6 MG in SYRINGE 0 ML IV SCH (20:10)
[2017-08-17] MEDS: SODIUM CHLORIDE 0.9% 1000ML 1,000 ML IV SCH ×2 (20:42→21:43)
[2017-08-17] MEDS: DULOXETINE HCL 20 MG CAP PO SCH (20:44)
[2017-08-17] MEDS: DULOXETINE (CYMBALTA) 30 MG CAP PO SCH (20:44)
[2017-08-17] MEDS: DOCUSATE SODIUM/SENNA 50/8.6MG TAB PO SCH (20:45)
[2017-08-17] MEDS: CEFAZOLIN IV 2,000 MG in SYRINGE 0 ML IV SCH (21:42)
[2017-08-18] VITALS (8 sets, daily range): BP systolic 126–150; BP diastolic 63–86; PULSE 68–81; TEMP 36.4–37.1; O2SAT 92–98
[2017-08-18] MEDS: SODIUM CHLORIDE 0.9% 1000ML 1,000 ML IV SCH (03:13)
[2017-08-18] MEDS: DEXAMETHASONE INJ 6 MG in SYRINGE 0 ML IV SCH ×2 (03:13→11:48)
[2017-08-18] MEDS ORDERED: NURSING DECISION MEDICATION ORDER SCH (05:15)
[2017-08-18] MEDS: CEFAZOLIN IV 2,000 MG in SYRINGE 0 ML IV SCH (05:47)
[2017-08-18] MEDS ORDERED: DC PCA ONE (06:00)
[2017-08-18] MEDS ORDERED: HYDROmorphone INJ 2 MG/ML SYR/VIAL IV PRN (06:00)
[2017-08-18] MEDS ORDERED: HYDROmorphone INJ 0.5 MG/0.5 ML SYR IV PRN (06:00)
[2017-08-18] MEDS ORDERED: HYDROmorphone INJ 1 MG/ML SYR IV PRN (06:00)
[2017-08-18 06:28] LABS: HEMATOCRIT 27.5 % (37-47); IG# 0.03 K/uL (0.00-0.02); LYMPH % 5.5 %; LYMPH ABS # 0.61 K/uL (1.2-3.4); MEAN CELL VOLUME 73.9 fL (80-100); MEAN CORPUSCULAR HEMOGLOBIN 24.2 pg (25-34); MEAN CORPUSCULAR HGB CONC 32.7 g/dl (32-36); MEAN PLATELET VOLUME 8.4 fL (7.4-10.4); MONO % 2.2 %; MONO ABS # 0.25 K/uL (0.11-0.59); NEUT ABS # 10.24 K/uL (1.4-6.5); PLATELET COUNT 255 K/uL (130-400); RED CELL DISTRIBUTION WIDTH CV 16.3 % (11.5-14.5); RED CELL DISTRIBUTION WIDTH SD 44.3 fL (36.4-46.3); WHITE BLOOD COUNT 11.13 K/uL (4.8-10.8)
[2017-08-18 07:00] LABS: CALCIUM 8.8 mg/dl (8.5-10.1); CREATININE 0.79 mg/dl (0.60-1.20); POTASSIUM 4.2 mmol/L (3.5-5.1)
[2017-08-18] MEDS: OXYCODONE HCL IR 5 MG TAB (IMMEDIATE RELEASE) PO PRN ×4 (07:52→23:52)
[2017-08-18] MEDS: CHECK SCOPOLAMINE PATCH PLACEMENT SCH ×2 (07:53→15:43)
--- NOTE | 2017-08-18 08:11 | Anesthesiology Progress Note ---
Anesthesia Post Op Note Date & Time Aug 18, 2017 at 08:11 Vital Signs Pain Intensity: 7.0 Vital Signs Past 12 Hours Date Time Temp Pulse Resp B/P (MAP) Pulse Ox O2 Delivery O2 Flow Rate FiO2 08/18/17 07:51 37.0 68 22 140/86 (104) 97 Room Air 08/18/17 03:56 36.4 81 15 129/63 (85) 92 Room Air 08/17/17 23:42 Room Air 08/17/17 23:27 36.5 84 16 152/77 (102) 93 Room Air Notes Mental Status: alert / awake / arousable, participated in evaluation Pt Amnestic to Procedure: Yes Nausea / Vomiting: adequately controlled Pain: adequately controlled Airway Patency, RR, SpO2: stable & adequate BP & HR: stable & adequate Hydration State: stable & adequate Anesthetic Complications: no major complications apparent
[2017-08-18] MEDS: BYSTOLIC PO SCH (08:58)
[2017-08-18] MEDS: PREGABALIN 75 MG CAP PO SCH ×2 (08:59→20:47)
[2017-08-18] MEDS: DOCUSATE SODIUM 100 MG CAP PO SCH ×2 (08:59→20:47)
[2017-08-18] MEDS: LIDODERM (LIDOCAINE) PATCH 5% TD SCH (09:00)
[2017-08-18] MEDS ORDERED: KETOROLAC TROMETHAMINE 15 MG/ML VIAL IV. PRN (10:30)
[2017-08-18] MEDS ORDERED: RXC5 PO (13:16)
--- NOTE | 2017-08-18 13:17 | Discharge Instructions ---
Discharge Instructions Date of Service Aug 18, 2017. Admission Reason for Admission: Back And Leg Pain Discharge Discharge Diagnosis / Problem: lumbar stenosis Discharge Goals Goal(s): Improve function Activity Recommendations Activity Limitations: per Instructions/Follow-up section . Instructions / Follow-Up Instructions / Follow-Up ACTIVITY RECOMMENDATIONS: SELF CARE INSTRUCTIONS AFTER THORACIC/LUMBAR FUSIONS 1. You may walk to your tolerance. It is good exercise for your legs and back. Expect some back and intermittent leg aches and pains. 2. You may perform "counter-top" level activities (make a sandwich, maureen with a project, etc.). 3. No bending or lifting of more than 10 pounds or back twisting of any nature (roll like a log when turning in bed). 4. You may ride in a car for 20-30 minutes at a time. No driving until after your first visit with your doctor. 5. Frequent changes of position and restricting sitting to 30 minutes at a time will help limit the amount of back spasms and stiffness you may experience. 6. You may discontinue the use of ambulatory aids (cane, crutches, etc.) once your strength and confidence allow. 7. You may grocery clerk checking the shower and let water strike your incision when you arrive home at least once daily. Do not take a tub bath, sit in a hot tub or go into a swimming pool until after your first recheck in the office. SPECIAL CARE INSTRUCTIONS: VERY IMPORTANT TO READ AND REVIEW A. Your surgical incision has been closed with a cosmetic suture under the skin that will dissolve in about 6 weeks. In 14 days, you can use a pair of clean scissors and cut the suture that is left outside of the skin at the ends of your incision. 1. The small skin tapes can be removed 7 days after surgery if they have not fallen off by that point. 2. You may keep the wound open to air as much as possible to promote healing after post-op day number 5 unless told otherwise by your doctor. 3. If you think the wound looks like it is becoming infected (redness or worsening drainage) and/or you are experiencing fever, chill or worsening back pain and muscle spasms, contact the office so that we may evaluate you as soon as possible. B. Complications are uncommon, but please contact us if you have any signs or symptoms of: 1. wound infection (fever higher than 102.5 degrees F, redness, separation of wound, drainage, or increasing pain from the incision) 2. blood clots in legs (pain, swelling, redness and warmth in legs) 3. urinary tract infection (fever higher than 102.5 degrees F, burning upon urination or increased frequency of urination) 4. nerve problems (inability to walk on your toes or heels, numbness, loss of bowel or bladder control) 5. any other symptoms that concern you C. Please call the office at if you have any concerns or questions about your operation or recovery. D. No smoking! Smoking drastically decreases the chance of a solid fusion. E. Do not take any anti-inflammatory medications (Indocin, Advil, Motrin, Aspirin, Naprosyn, etc.) as these may inhibit the chance of a solid fusion. Tylenol is okay to take for pain. MANAGING PAIN AFTER SPINAL SURGERY 1. Narcotic medication is intended for short-term use and will be provided for surgical pain. Surgical pain usually lasts for a period of 4-6 weeks. Narcotic medication includes Percocet, Vicodin, Darvocet, Tylenol #3 or Lortab. 2. Longer-term pain is more appropriately treated with non-narcotic medication such as Tylenol ES. 3. Muscle spasm is not appropriately treated with narcotics. Muscle relaxers such as Soma, Flexeril or Skelaxin can be used along with Tylenol ES. 4. Remember that we all live with some "aches and pains". This is not unusual or uncommon after an injury or as we get older. a. Back pain is expected and may include muscle spasms for 4 to 6 weeks after surgery. The pain should gradually improve. If the pain worsens for no apparent reason, please contact the office. b. Intermittent leg pain may also be experienced and should not be concerned about unless it worsens for no apparent reason. If so, please contact the office. 5. We will provide appropriate medication within the normal guidelines of their prescribed use. We will also be very cautious and aware of potential abuse and extended duration of patients' medication needs. a. Pain medications are for your comfort and to assist with sleep and rest so that the tissue can heal. They are not provided in order to return to normal activity and should not be used through the day. To do so or worsening pain at night can result from ongoing tissue damage and development of tolerance to the prescribed medicine. 6. Please allow 2-3 days to process refills. Prescriptions will not be mailed but must be picked up at the office. FOLLOW UP VISIT: Keep your scheduled follow-up appointment. Any questions, please call the office at . Current Hospital Diet Patient's current hospital diet: Regular Diet Discharge Diet Recommended Diet: Regular Diet Procedures Procedures Performed: 1. Removal of posterior instrumentation L4-5. #2 expiration of fusion L4-5. #3 lumbar decompression medial facetectomies foraminotomies L2-3 L3-4. #4 posterior spinal fusion L2-3 L3-4. #5 placement posterior segmental instrumentation L2-3 L3-4 L4-5. #6 interbody fusion L3-4. #7 placement peek cage 12 x 26 mm at L3-4. #8 placement of locally harvested morselized autograft L2-3 L3-4 #9 placement InFUSE collagen sponge, mass graft in the posterior lateral gutters and ostial amp in the interbody space. Pending Studies Studies pending at discharge: no Medical Emergencies . Who to Call and When: Medical Emergencies: If at any time you feel your situation is an emergency, please call 911 immediately. . Non-Emergent Contact Non-Emergency issues call your: Primary Care Provider . "Provider Documentation" section prepared by Brant Cohen. .
--- NOTE | 2017-08-18 13:19 | Progress Note ---
Progress Note Date of Service Aug 18, 2017. Progress Note Patient's leg symptoms are markedly improved. Vital signs are stable. In exam she is in a chair at the bedside is good strength testing appears comfortable. Assessment status post lumbar decompression fusion. Plan at this time will continue physical therapy advance her bowel regimen anticipate discharge home this weekend.
[2017-08-18] MEDS ORDERED: NURSING VERBAL MED ORDER ONE (15:45)
--- NOTE | 2017-08-18 18:51 | Progress Note ---
Medicine Progress Note Date & Time of Visit: Aug 18, 2017 at 18:49. Subjective seen resting in bedside chair comfortable back pain well controlled denies dyspnea, palpitations, dizziness, chest pain no other symptoms Objective Last 8 Hrs Date Time Temp Pulse Resp B/P (MAP) Pulse Ox O2 Delivery O2 Flow Rate FiO2 08/18/17 14:56 36.6 70 20 150/70 (96) 97 Room Air 08/18/17 12:00 37.1 74 20 126/68 (87) 98 Room Air Physical Exam: General-oriented 3 not in distress speaking sentences Neck-no JVD Lungs- clear breath sounds bilaterally, no rales/wheezes Heart- regular rhythm; no murmur, normal rate Abdomen- normal bowel sounds, soft, nontender, nondistended Extremities- no pretibial edema, no calf tenderness Neuro- alert, oriented x 3; no gross focal neuro deficits Skin- warm & dry Laboratory Results: Last 24 Hours Test 08/18/17 06:02 White Blood Count 11.13 K/uL Red Blood Count 3.72 M/uL Hemoglobin 9.0 g/dL Hematocrit 27.5 % Mean Corpuscular Volume 73.9 fL Mean Corpuscular Hemoglobin 24.2 pg Mean Corpuscular Hemoglobin Concent 32.7 g/dl Platelet Count 255 K/uL Mean Platelet Volume 8.4 fL Neutrophils (%) (Auto) 92.0 % Lymphocytes (%) (Auto) 5.5 % Monocytes (%) (Auto) 2.2 % Eosinophils (%) (Auto) 0.0 % Basophils (%) (Auto) 0.0 % Neutrophils # (Auto) 10.24 K/uL Lymphocytes # (Auto) 0.61 K/uL Monocytes # (Auto) 0.25 K/uL Eosinophils # (Auto) 0.00 K/uL Basophils # (Auto) 0.00 K/uL RDW Standard Deviation 44.3 fL RDW Coefficient of Variation 16.3 % Immature Granulocyte % (Auto) 0.3 % Immature Granulocyte # (Auto) 0.03 K/uL Sodium Level 134 mmol/L Potassium Level 4.2 mmol/L Chloride Level 100 mmol/L Carbon Dioxide Level 25 mmol/L Anion Gap 10.0 mmol/L Blood Urea Nitrogen 10 mg/dl Creatinine 0.79 mg/dl Est Creatinine Clear Calc Drug Dose 77.6 ml/min Estimated GFR () 88.5 Estimated GFR (Non- 76.4 BUN/Creatinine Ratio 12.7 Random Glucose 156 mg/dl Calcium Level 8.8 mg/dl Assessment & Plan BACK PAIN Pt post op lumbar spinal decompression and fusion on 07/03/[address] Cohen. Past 2 weeks with L low back pain with radiation to left leg. MRI: 1. Postsurgical changes the L4-5 level. 2. Disc bulge and moderate spinal stenosis at the L3-4 level. There is also bilateral foraminal narrowing. 3. Right lateral disc bulge/protrusion at the L2-3 level with right-sided foraminal narrowing. Status post back surgery Postop day #1 remains stable HTN Transitioned to usual nebivolol 20 mg p.o. daily in the morning As needed clonidine monitor BP HYPOKALEMIA K: 3.2 Resolved -monitor electrolytes HX RA No active flare or recent flares. Follows with CONNOR Baltazar -continue Lyrica, Cymbalta DVT Prophylaxis Deferred to orthopedic service Thank you for this consultation. We will follow the patient with you during their hospital stay. You can reach a member of the [facility] Hospitalist Team 05/12 via pager @ . Current Inpatient Medications: Current Inpatient Medications Medications (Trade) Dose Ordered Sig/Selwyn Route Start Time Stop Time Status Last Admin Dose Admin Miscellaneous (Iv Fluids Completed) 1 ea PRN PRN N/A 08/15/17 04:15 08/15/18 04:14 Duloxetine HCl (Cymbalta Cap) 40 mg HS PO 08/15/17 21:00 09/14/17 20:59 08/17/17 20:44 40 MG Duloxetine HCl (Cymbalta Cap) 60 mg HS PO 08/15/17 21:00 09/14/17 20:59 08/17/17 20:44 60 MG Pregabalin (Lyrica Cap) 75 mg BID PO 08/15/17 09:00 09/14/17 08:59 08/18/17 08:59 75 MG Clonidine HCl (Catapres Tab) 0.1 mg Q6H PRN PO 08/15/17 07:45 09/14/17 07:44 08/15/17 23:17 0.1 MG Docusate Sodium (coLACE CAP) 100 mg BID PO 08/15/17 21:00 09/14/17 20:59 08/18/17 08:59 100 MG Lidocaine (Lidoderm Patch 5%) 1 patch QAM TD 08/16/17 09:00 09/15/17 08:59 08/18/17 09:00 1 PATCH Miscellaneous (Remove Lidoderm Patch) 1 ea DAILY@21 N/A 08/15/17 21:00 09/14/17 20:59 08/17/17 21:00 1 EA Calcium Carbonate (Tums Chew Tab) 500 mg QID PRN PO 08/15/17 21:30 09/14/17 21:29 08/15/17 21:52 500 MG Nebivolol (Bystolic) 20 mg DAILY PO 08/18/17 09:00 09/16/17 08:59 08/18/17 08:58 20 MG Promethazine HCl 12.5 mg/Sodium Chloride 50.5 ml @ 202 mls/hr Q6H PRN IV 08/17/17 15:15 09/16/17 15:14 Ondansetron HCl (Zofran Inj) 4 mg Q6H PRN IV 08/17/17 15:15 09/16/17 15:14 08/17/17 19:49 4 MG Metoclopramide HCl (Reglan Inj) 10 mg Q6H PRN IV 08/17/17 15:15 09/16/17 15:14 Lorazepam (Ativan Tab) 0.5 mg Q8H PRN PO 08/17/17 15:15 09/16/17 15:14 Lorazepam 0.5 mg/ Syringe 1 ml @ 1 mls/min Q8H PRN IV 08/17/17 15:15 09/16/17 15:14 Pneumococcal Polysaccharide Vaccine 1 ea PRN PRN N/A 08/17/17 15:15 09/16/17 15:14 Influenza Virus Vacc Triv Types A&B 1 ea PRN PRN N/A 08/17/17 15:15 09/16/17 15:14 Polyethylene (Miralax Powder Packet) 17 gm Q6 PO 08/19/17 06:00 09/18/17 05:59 Bisacodyl (Dulcolax Supp) 10 mg DAILY PRN NM 08/17/17 15:15 09/16/17 15:14 Magnesium Hydroxide (Milk Of Magnesia Susp) 30 ml DAILY PRN PO 08/17/17 15:15 09/16/17 15:14 Oxycodone HCl (Roxicodone Immediate Rel Tab) 5-10mg prn moderate to sev... Q4H PRN PO 08/18/17 06:00 09/01/17 05:59 08/18/17 12:35 10 MG Acetaminophen (Tylenol Tab) 1,000 mg Q8H PRN PO 08/17/17 15:15 09/16/17 15:14 Acetaminophen 100 ml @ 400 mls/hr Q8H PRN IV 08/17/17 15:15 09/16/17 15:14 Naloxone HCl (Narcan Inj) 0.1 mg Q5M PRN IV 08/17/17 15:15 09/16/17 15:14 Senna/Docusate Sodium (Senokot S Tab) 2 tab HS PO 08/17/17 21:00 09/16/17 20:59 08/17/17 20:45 2 TAB Sodium Biphosphate/ Sodium Phosphate (Fleet Enema) 132 ml ONE PRN NM 08/17/17 15:15 09/16/17 15:14 Hydroxyzine HCl (Vistaril Tab) 25 mg Q8H PRN PO 08/17/17 15:15 09/16/17 15:14 Al Hydroxide/Mg Hydroxide (Maalox Susp) 30 ml Q6H PRN PO 08/17/17 15:15 09/16/17 15:14 Famotidine (Pepcid Tab) 20 mg Q12 PRN PO 08/17/17 15:15 09/16/17 15:14 Diphenhydramine HCl (Benadryl Cap) 25 mg Q6H PRN PO 08/17/17 15:15 09/16/17 15:14 Hydromorphone HCl (Dilaudid Inj) 1 mg Q3H PRN IV 08/18/17 06:00 09/01/17 05:59 Hydromorphone HCl (Dilaudid Inj) 0.5 mg Q3H PRN IV 08/18/17 06:00 09/01/17 05:59 Ketorolac Tromethamine (Toradol Inj) 15 mg Q6H PRN IV. 08/18/17 10:30 08/23/17 10:29 08/18/17 11:48 15 MG
[2017-08-18] MEDS: DULOXETINE HCL 20 MG CAP PO SCH (20:47)
[2017-08-18] MEDS: DOCUSATE SODIUM/SENNA 50/8.6MG TAB PO SCH (20:47)
[2017-08-18] MEDS: DULOXETINE (CYMBALTA) 30 MG CAP PO SCH (20:47)
[2017-08-19] MEDS: OXYCODONE HCL IR 5 MG TAB (IMMEDIATE RELEASE) PO PRN ×2 (05:51→11:54)
[2017-08-19] MEDS ORDERED: POLYETHYLENE (MIRALAX) 17 GM PACK PO SCH (06:00)
[2017-08-19 06:13] VITALS: BP 139/73; PULSE 62; TEMP 36.6; O2SAT 96
[2017-08-19] MEDS: BYSTOLIC PO SCH (08:05)
[2017-08-19] MEDS: DOCUSATE SODIUM 100 MG CAP PO SCH (08:06)
[2017-08-19] MEDS: LIDODERM (LIDOCAINE) PATCH 5% TD SCH (08:09)
[2017-08-19] MEDS: PREGABALIN 75 MG CAP PO SCH (08:09)
[2017-08-19 08:38] VITALS: BP 134/65; PULSE 68; O2SAT 98
[2017-08-19 10:13] VITALS: BP 139/73; PULSE 62; TEMP 36.6; O2SAT 96
--- NOTE | 2017-08-19 10:23 | Discharge Summary ---
Orthopedic Discharge Summary Admission Date/Reason Aug 15, 2017 at 12:32 Back And Leg Pain. Discharge Date/Disposition Aug 19, 2017 Home Diagnosis Principal Diagnosis: Lumbar spinal stenosis Admission Physical Exam As per Admitting History & Physical. Hospital Course Patient underwent lumbar decompression fusion tolerated as well as taken to the orthopedic floor postoperatively. Postop day #1 she was up and ambulatory leg pain markedly improved progress through postop day #2. JEFF drain decreased appropriately. Subsequently discharged home. Discharge orders and instructions found in the chart for further review. Discharge Instructions Please refer to the electronic Patient Visit Report (Discharge Instructions) for additional information.
== END 2017-08-19 12:17 | disposition home health service (06) | DRG 455 ==
LOC: C.EDB 20:28 → C.3E 08-15 02:20 → ENRESERV 08-15 02:36 → OBSVTOIN 08-15 12:32 → C.3E 08-17 16:35
PROVIDERS: ADMIT Orthopaedic Surgery Orthopaedic Surgery of the Spine; ATTEND Orthopaedic Surgery Orthopaedic Surgery of the Spine
PROC: 0SP004Z Removal of Internal Fixation Device from Lumbar Vertebral Joint, Open Approach (ICD-10-PCS; principal; 2017-08-17 08:15)
PROC: 0SG1071 Fusion of 2 or more Lumbar Vertebral Joints with Autologous Tissue Substitute, Posterior Approach, Posterior Column, Open Approach (ICD-10-PCS; principal; 2017-08-17 08:15)
PROC: 0ST20ZZ Resection of Lumbar Vertebral Disc, Open Approach (ICD-10-PCS; principal; 2017-08-17 08:15)
PROC: 0SG00AJ Fusion of Lumbar Vertebral Joint with Interbody Fusion Device, Posterior Approach, Anterior Column, Open Approach (ICD-10-PCS; principal; 2017-08-17 08:15)
DX: M48.061 Spinal stenosis, lumbar region without neurogenic claudication (principal); M51.16 Intervertebral disc disorders with radiculopathy, lumbar region; I10 Essential (primary) hypertension; E87.6 Hypokalemia; M06.9 Rheumatoid arthritis, unspecified; Z79.899 Other long term (current) drug therapy; Z98.1 Arthrodesis status; Z88.8 Allergy status to other drugs, medicaments and biological substances

== ENCOUNTER 2019-11-01 09:16 | Inpatient (IN) ==
--- NOTE | 2019-10-10 15:42 | PAT Medication Instructions ---
Medication Instructions Date of Service October 10, 2019 Home Medications Allergy Shot 1 dose WK duloxetine [Cymbalta] 60 mg PO QAM duloxetine [Cymbalta] 90 mg PO HS esomeprazole magnesium [Nexium] 20 mg PO HS folic acid 1 mg PO DAILY hydromorphone [Dilaudid] 2 mg PO HS lisinopril 5 mg PO QAM methotrexate sodium 20 mg PO WK nebivolol [Bystolic] 40 mg PO QAM pilocarpine HCl 5 mg PO HS pilocarpine HCl 10 mg PO QAM pregabalin [Lyrica] 75 mg PO BID Continue as directed Allergy Shot 1 dose WK ASK your prescriber and surgeon methotrexate sodium 20 mg PO WK DO NOT take the morning of surgery folic acid 1 mg PO DAILY lisinopril 5 mg PO QAM pilocarpine HCl 10 mg PO QAM Take morning of surgery With a small sip of water, OTHERWISE NOTHING TO EAT OR DRINK AFTER MIDNIGHT: duloxetine [Cymbalta] 60 mg PO QAM nebivolol [Bystolic] 40 mg PO QAM pregabalin [Lyrica] 75 mg PO BID Take evening before surgery duloxetine [Cymbalta] 90 mg PO HS esomeprazole magnesium [Nexium] 20 mg PO HS hydromorphone [Dilaudid] 2 mg PO HS pilocarpine HCl 5 mg PO HS pregabalin [Lyrica] 75 mg PO BID Other Notes If you have any questions please call us at [phone] or [phone] or [phone] or [phone]
--- NOTE | 2019-10-19 14:05 | PAT Medication Instructions ---
Medication Instructions Date of Service October 19, 2019 Home Medications Allergy Shot 1 dose WK duloxetine [Cymbalta] 60 mg PO QAM duloxetine [Cymbalta] 90 mg PO HS esomeprazole magnesium [Nexium] 20 mg PO HS folic acid 1 mg PO DAILY hydromorphone [Dilaudid] 2 mg PO HS lisinopril 5 mg PO QAM methotrexate sodium 20 mg PO WK nebivolol [Bystolic] 40 mg PO QAM pilocarpine HCl 5 mg PO HS pilocarpine HCl 10 mg PO QAM pregabalin [Lyrica] 75 mg PO BID Continue as directed Allergy Shot 1 dose WK ASK your prescriber and surgeon methotrexate sodium 20 mg PO WK DO NOT take the morning of surgery pilocarpine HCl 10 mg PO QAM lisinopril 5 mg PO QAM folic acid 1 mg PO DAILY Take morning of surgery With a small sip of water, OTHERWISE NOTHING TO EAT OR DRINK AFTER MIDNIGHT: pregabalin [Lyrica] 75 mg PO BID nebivolol [Bystolic] 40 mg PO QAM duloxetine [Cymbalta] 60 mg PO QAM Take evening before surgery pregabalin [Lyrica] 75 mg PO BID pilocarpine HCl 5 mg PO HS hydromorphone [Dilaudid] 2 mg PO HS duloxetine [Cymbalta] 90 mg PO HS esomeprazole magnesium [Nexium] 20 mg PO HS Other Notes If you have any questions please call us at [phone] or [phone] or [phone] or [phone]
--- NOTE | 2019-10-21 08:36 | Anesthesiology Consultation ---
Date of Service October 21, 2019 Assessment & Plan (1) Encounter for pre-operative examination: Chart Review Chart Review: Acceptable Risk for Surgery (pending 10/20 PCP clearance and Covid testing three days prior to surgery ) and Patient seen in Pre Admission Testing PCP clearance done after PAT appt on 10/20- will send copies of preop testing for clearance Pt denies knowledge of needing Covid test- did leave message at surgeon's office stating patient needs Covid testing done three days prior to surgery. Teaching & Discussion Pre-Anesthesia Teaching/Discussion Notes: Instructed NPO after midnight before surgery,except medications with 15 cc of water. Medication instructions provided according to the PAT guidelines. History Surgery Operation Date: 11/01/19 09:15 Proposed Procedures p L5-S1 Decompression Fusion, L2-L5 Hardware Removal, Spinal Cord Monitoring - Brant Cohen DO Height/Weight Height: 6 ft Weight: 83.6 kg Allergies Allergy/AdvReac Type Severity Reaction Status Date / Time cat dander Allergy Unknown RASH Verified 10/09/19 11:45 dog dander Allergy Unknown RASH Verified 10/09/19 11:45 grass pollen-perennial rye, Allergy Unknown RASH Verified 10/09/19 11:45 standar Corticosteroids AdvReac Unknown night Verified 10/09/19 11:45 (Glucocorticoids) sweats Medications Home Medications Medication Instructions Recorded Confirmed Last Taken Allergy Shot 1 dose WK 10/09/19 10/09/19 Unknown duloxetine [Cymbalta] 60 mg PO [facility] 10/09/19 10/09/19 Unknown duloxetine [Cymbalta] 90 mg PO 10/09/19 10/09/19 Unknown esomeprazole magnesium [Nexium] 20 mg PO 10/09/19 10/09/19 Unknown folic acid 1 mg PO DAILY 10/09/19 10/09/19 Unknown hydromorphone [Dilaudid] 2 mg PO 10/09/19 10/09/19 Unknown lisinopril 5 mg PO QA 10/09/19 10/09/19 Unknown methotrexate sodium 20 mg PO WK 10/09/19 10/09/19 Unknown nebivolol [Bystolic] 40 mg PO QA 10/09/19 10/09/19 Unknown pilocarpine HCl 5 mg PO 10/09/19 10/09/19 Unknown pilocarpine HCl 10 mg PO [facility] 10/09/19 10/09/19 Unknown pregabalin [Lyrica] 75 mg PO BID 10/09/19 10/09/19 Unknown Past Medical History Medical History Acid reflux Controlled and stable Chronic cough FOR 3 YRS - CHRONIC AND STABLE- NON PRODUCTIVE History of anesthesia reaction PT REPORTS WAS AWAKE AND TALKING BUT COULDN'T REMEMBER ANYTHING ABOUT IT FOR THREE DAYS AFER (FIRST BACK SURGERY, [facility] 06/2017) NO PROBLEM WITH SECOND BACK SURGERY AUGUST 2017 History of skin cancer & REMOVED HTN (hypertension) Loss of teeth due to extraction Night sweats STARTED fall Rheumatoid arthritis Sjogren's syndrome Spinal stenosis Urinary frequency AT NIGHT Exercise / Class Metabolic Activity III < 4 Walking/Shop/Light housework (NO CHEST PAIN OR SOB WITH FLAT SURFACE, SHORT DISTANCE WALKING ) Past Family History Family History Other Family history of colon cancer in mother Family history of diabetes mellitus in mother Past Surgical History Surgical History History of endoscopy History of hysterectomy History of lumbar fusion X2 History of tonsillectomy Past Anesthesia History No Hx of Anesthesia Complications (WITH EXCEPTION TO ONE EPISODE OF NOT REMEMBER X 3 DAYS AFTER SURGERY ) and No Family Hx of Anesthesia Complications History of PONV History of PONV and Hx of Motion Sickness Social History Smoking Status: Never smoker Do You Dip or Chew Tobacco: No Hx Alcohol Use: No Hx Substance Use: No substance use type: prescription drug Review of Systems Blood tranfusion due to GI bleed secondary to too much Excedrin- not recently- no recent issues. Patient denies chest pain, shortness of breath, dyspnea on exertion, wheezing, palpitations. No hx of seizures, stroke, [place], apnea/snoring. No hx of blood clots. Physical Exam Vital Signs VITALS BP 122/71 P 58 TEMP 97.7 SP02 98% RESP 16 Constitutional no acute distress ENMT Mouth: no chipped teeth Thyromental Distance: < 3.5 Finger Breadths (3.0) Mallampati Class: I Missing top teeth. Missing bottom molars Neck neck extension not limited Respiratory normal respiratory effort; no respiratory distress Auscultation: lungs clear to auscultation bilaterally; no wheezes Cardiovascular Rate/Rhythm: regular rate and regular rhythm Heart Sounds: no murmur Vessels: no carotid bruit Musculoskeletal Spine: + pain with cervical ROM Neurologic moves all extremities Psychiatric Orientation: alert Testing Laboratory Results 10/21/19 08:54 10/21/19 08:54 PT 10.7 Seconds (9.0-12.0) 10/21/19 08:54 INR 1.0 (0.9-1.1) 10/21/19 08:54 APTT 28.1 Seconds (21.0-31.0) 10/21/19 08:54 Urine Color Yellow 10/21/19 08:54 Urine Appearance Clear (Clear) 10/21/19 08:54 Urine pH 5.0 (4.5-7.5) 10/21/19 08:54 Ur Specific [place] 1.015 (1.000-1.030) 10/21/19 08:54 Urine Protein Negative (Negative) 10/21/19 08:54 Urine Glucose (UA) Negative (Negative) 10/21/19 08:54 Urine Ketones Negative (Negative) 10/21/19 08:54 Urine Nitrite Negative (Negative) 10/21/19 08:54 Ur Leukocyte Esterase 2+ (Negative) H 10/21/19 08:54 Urine WBC (Auto) 10-30 /hpf (0-5) H 10/21/19 08:54 Urine RBC (Auto) 0-4 /hpf (0-4) 10/21/19 08:54 U Hyaline Cast (Auto) 1-5 /lpf (0-5) 10/21/19 08:54 U Epithel Cells (Auto) 20-30 /lpf (0-5) H 10/21/19 08:54 Urine Bacteria (Auto) Negative (Negative) 10/21/19 08:54 Blood Type O Positive 10/21/19 08:54 Antibody Screen NEGATIVE 10/21/19 08:54 Chronic stable anemia per review of previous labs on file Electrocardiogram Date: 10/21/19 Findings: + SB @ (55) Left axis deviation. LVH with repolarization abnormality. Compared to EKG from Jun 07, 2017 - no significant change per cardio Chest X-Ray Date: 10/21/19 Findings: + NAD and + cardiomegaly (mild) Cervical Spine Date: 10/21/19 Moderate facet degenerative changes throughout the majority of the cervical spine. There is moderate to severe disc space narrowing and endplate osteophytes at C5-C6 and C6-C7. No fracture or subluxation within the cervical spine. This is similar to the prior study.
[2019-10-21 09:38] LABS: Basophils # (auto) 0.05 K/uL (0-0.2); Basophils % (auto) 0.8 %; Eosinophils # (auto) 0.27 K/uL (0-0.5); Eosinophils % (auto) 4.1 %; Hematocrit (blood only) 31.3 % (37-47); Hemoglobin 9.8 g/dL (12.0-16.0); Immature Granulocytes # (auto) 0.02 K/uL (0.00-0.02); Immature Granulocytes % (auto) 0.3 %; Lymphocytes # (auto) 0.98 K/uL (1.2-3.4); Lymphocytes % (auto) 14.8 %; Mean Corpuscular Hemoglobin 22.1 pg (25-34); Mean Corpuscular Hgb Conc 31.3 g/dL (32-36); Mean Corpuscular Volume 70.7 fL (80-100); Mean Platelet Volume 9.3 fL (7.4-10.4); Monocytes # (auto) 0.54 K/uL (0.11-0.59); Monocytes % (auto) 8.2 %; Neutrophils # (auto) 4.74 K/uL (1.4-6.5); Neutrophils % (auto) 71.8 %; Platelet Count 277 K/uL (130-400); RDW Coefficient of Variation 19.5 % (11.5-14.5); RDW Standard Deviation 50.2 fL (36.4-46.3); Red Blood Count 4.43 M/uL (4.2-5.4)
[2019-10-21 09:42] LABS: Appearance Urine Clear (Clear); Bacteria Urine Automated Negative (Negative); Bilirubin Urine Negative (Negative); Blood Urine Negative (Negative); Color Urine Yellow; Epithelial Cell Urine Auto 20-30 /lpf (0-5); Glucose Urine UA Negative (Negative); Ketones Urine Negative (Negative); Leukocyte Esterase Urine 2+ (Negative); Nitrite Urine Negative (Negative); Protein Urine Negative (Negative); RBC Urine Automated 0-4 /hpf (0-4); Specific Gravity Urine 1.015 (1.000-1.030); Urobilinogen Urine Negative (Negative)
--- NOTE | 2019-10-21 09:42 | XRay Report ---
XR chest Pre-admission PA/Lat CLINICAL HISTORY: Preoperative evaluation. COMPARISON STUDY: Chest radiograph June 07, 2017. FINDINGS: Lung volumes are normal. Lungs are clear. There is no pneumothorax or pleural effusion. Mil d cardiomegaly is noted. Mediastinal contours are normal. There is no evidence for pulmonary edema. I ncidental note is made of healed anterior left third and fourth rib fractures. Lumbar spine hardware is partially imaged. IMPRESSION: No acute cardiopulmonary findings. ACT 112: Negative or not required by law. Electronically signed by: Hua Mitchell M.D. 10/21/2019 9:40 AM
--- NOTE | 2019-10-21 09:44 | XRay Report ---
XR cervical spine 2 or 3V CLINICAL HISTORY: preop- RA- lateral, flexion, neutral views COMPARISON STUDY: Cervical spine 06/07/2017. FINDINGS: AP, lateral, and odontoid views of the cervical spine were submitted for review. The cervic al spine is visualized from C1 through T1. Alignment and curvature is intact. No fractures within the cervical spine. Moderate facet degenerative changes throughout the majority of the cervical spine. T here is moderate to severe disc space narrowing and endplate osteophytes at C5-C6 and C6-C7. Preverte bral soft tissues and the C1-C2 interval are intact. IMPRESSION: 1. No fracture or subluxation within the cervical spine. 2. Degenerative changes as described above. This is similar to the prior study. ACT 112: Negative or not required by law. Electronically signed by: Fermin Saeed M.D. 10/21/2019 9:43 AM
[2019-10-21 09:51] LABS: Partial Thromboplastin Time 28.1 Seconds (21.0-31.0); Prothrombin Time 10.7 Seconds (9.0-12.0)
[2019-10-21 10:07] LABS: BUN Creatinine Ratio 13.4 (10-20); Calcium 8.5 mg/dl (8.5-10.1); Creatinine Clr Calc Pharmacy 74.4 ml/min; Est GFR (Non-African American) 74.2
--- NOTE | 2019-10-21 22:46 | Electrocardiogram Report ---
Test Reason : Blood Pressure : / mmHG Vent. Rate : 055 BPM Atrial Rate : 055 BPM P-R Int : 174 ms QRS Dur : 104 ms QT Int : 510 ms P-R-T Axes : 000 -33 096 degrees QTc Int : 487 ms Sinus bradycardia Left axis deviation Left ventricular hypertrophy with repolarization abnormality Abnormal ECG When compared with ECG of 07-JUN-2017 12:22, No significant change Confirmed by Stephen Celis ([id number]) on 10/21/2019 10:46:14 PM Referred By: Brant Cohen Confirmed By:Stephen Celis
[~2019-11-01 09:16] MED LIST changes: +ACETAMINOPHEN 500 MG TAB PO SCH; -ALLERGY INJECTION INJ; -CALC1CAP24 PO; +CEFAZOLIN 2000MG 2,000 MG/15 ML SYR IV SCH; -CYCL0.052 OPL; -CYM/30 PO; +CeleBREX 200 MG CAP PO SCH; -DIPH-437 PO; -DULO-24 PO; -ESOM20CA PO; -FOLI1TAB8 PO; +GABAPENTIN 300 MG CAP PO SCH; -HYDR-3983 PO; +LR 15ML/HR IV SCH; -LYSI1TAB12 PO; -NEBI20TA2 PO; -OMEG10007 PO; -PREG1CAP28 PO; -RXC5 PO
[2019-11-01] MEDS ORDERED: fentaNYL citrate 100 MCG/2 ML VIAL ONE (11:25)
[2019-11-01] MEDS ORDERED: MIDAZOLAM HCL 1 MG/ML 2ML VIAL ONE (11:25)
[2019-11-01] MEDS ORDERED: HYDROmorphone INJ 2 MG/ML SYR/VIAL ONE (11:26)
--- NOTE | 2019-11-01 11:45 | History & Physical Report ---
Date of Service November 01, 2019 Assessment & Plan (1) Lumbar stenosis with neurogenic claudication: L5-S1 decompression fusion, L2-L5 hardware removal Present on Admission?: Yes History of Present Illness Chief Complaint: Back and leg pain Primary Care Provider: Shalom Harris III, DAMIAN This is a 73-year-old female who presents with worsening back and leg pain. After failing extensive course of nonoperative care is here for surgical intervention. Allergies Allergy/AdvReac Type Severity Reaction Status Date / Time cat dander Allergy Unknown RASH Verified 11/01/19 10:01 dog dander Allergy Unknown RASH Verified 11/01/19 10:01 grass pollen-perennial rye, Allergy Unknown RASH Verified 11/01/19 10:01 standar Corticosteroids AdvReac Unknown night Verified 11/01/19 10:01 (Glucocorticoids) sweats Home Medications Home Medications Medication Instructions Recorded Confirmed Type Allergy Shot 1 dose WK 10/09/19 11/01/19 History duloxetine [Cymbalta] 60 mg PO QAM 10/09/19 11/01/19 History duloxetine [Cymbalta] 90 mg PO HS 10/09/19 11/01/19 History esomeprazole magnesium [Nexium] 20 mg PO HS 10/09/19 11/01/19 History folic acid 1 mg PO DAILY 10/09/19 11/01/19 History hydromorphone [Dilaudid] 2 mg PO HS 10/09/19 11/01/19 History lisinopril 5 mg PO QAM 10/09/19 11/01/19 History methotrexate sodium 20 mg PO WK 10/09/19 11/01/19 History nebivolol [Bystolic] 40 mg PO QAM 10/09/19 11/01/19 History pilocarpine HCl 5 mg PO HS 10/09/19 11/01/19 History pilocarpine HCl 10 mg PO QAM 10/09/19 11/01/19 History pregabalin [Lyrica] 75 mg PO BID 10/09/19 11/01/19 History Past Med/Surg History Medical History Acid reflux Controlled and stable Chronic cough FOR 3 YRS - CHRONIC AND STABLE- NON PRODUCTIVE History of anesthesia reaction PT REPORTS WAS AWAKE AND TALKING BUT COULDN'T REMEMBER ANYTHING ABOUT IT FOR THREE DAYS AFER (FIRST BACK SURGERY, [facility] 06/2017) NO PROBLEM WITH SECOND BACK SURGERY AUGUST 2017 History of skin cancer & REMOVED HTN (hypertension) Loss of teeth due to extraction Night sweats STARTED fall Rheumatoid arthritis Sjogren's syndrome Spinal stenosis Urinary frequency AT NIGHT Surgical History History of endoscopy History of hysterectomy History of lumbar fusion X2 History of tonsillectomy Family History Other Family history of colon cancer in mother Family history of diabetes mellitus in mother Social History Preferred Language: Korean Communication Ability: Effective Beliefs That Will Affect Care: None Current Living Situation: Spouse Other Information That Helps Us Care for You: No Feels Safe at Home: Yes Smoking Status: Never smoker Do You Dip or Chew Tobacco: No ; Hx Alcohol Use: No Hx Substance Use: No Physical Exam Physical Exam: Patient is alert and oriented neurologically intact. Heart is regular rate and rhythm. Lungs clear to auscultation.
[2019-11-01] MEDS ORDERED: BUPIVACAINE/EPINEPHRINE 0.25% 1:200,000 30 ML VIAL ONE (11:58)
[2019-11-01] MEDS ORDERED: BACITRACIN INJ 50,000 UNIT VIAL ONE (11:58)
[2019-11-01] MEDS ORDERED: ONDANSETRON INJ 2 MG/ML 2 ML VIAL IV PRN ×2 (12:12→16:35)
[2019-11-01] MEDS ORDERED: METOCLOPRAMIDE HCL INJ 5 MG/ML 2 ML VIAL IV PRN ×2 (12:12→16:35)
[2019-11-01] MEDS ORDERED: PROMETHAZINE HCL 12.5 MG in SODIUM CHLORIDE 0.9% 50 ML IV PRN ×2 (12:12→16:35)
[2019-11-01] MEDS ORDERED: HYDROmorphone INJ 2 MG/ML SYR/VIAL IV PRN (12:12)
[2019-11-01] MEDS ORDERED: fentaNYL citrate 100 MCG/2 ML VIAL IV PRN (12:12)
[2019-11-01] MEDS ORDERED: ATROPINE SULFATE 0.1 MG/ML 10ML SYR IV PRN (12:12)
[2019-11-01] MEDS ORDERED: ePHEDrine sulfate 50 MG/ML AMP IV PRN (12:12)
[2019-11-01] MEDS ORDERED: ALBUMIN HUMAN 5% 12.5 GM/250 ML VIAL IV ONE (13:13)
[2019-11-01] MEDS ORDERED: FLOSEAL HEMOSTATIC MATRIX 10ML TOP ONE (13:17)
[2019-11-01] MEDS ORDERED: NEOSTIGMINE METHYLSULFATE 5 MG/5 ML SYR ONE (13:20)
[2019-11-01] MEDS ORDERED: ONDANSETRON INJ 2 MG/ML 2 ML VIAL ONE (13:20)
[2019-11-01] MEDS ORDERED: ROCURONIUM BROMIDE 10 MG/ML 5 ML VIAL IV ONE (13:20)
[2019-11-01] MEDS ORDERED: PHENYLEPHRINE 100MCG/ML 5ML SYR ONE ×2 (13:20→13:37)
[2019-11-01] MEDS ORDERED: GLYCOPYRROLATE 0.2 MG/ML VIAL ONE (13:20)
[2019-11-01] MEDS ORDERED: ePHEDrine sulfate 50 MG/ML SYR ONE ×2 (13:20→13:37)
[2019-11-01] MEDS ORDERED: LIDOCAINE HCL 2% 2 ML VIAL/AMP(20MG/ML) INFIL ONE (13:20)
[2019-11-01] MEDS ORDERED: DEXAMETHASONE SOD INJ 4 MG/ML VIAL ONE (13:20)
[2019-11-01] MEDS ORDERED: PROPOFOL IV EMULSION 10 MG/ML 20 ML VIAL IV ONE (13:20)
--- NOTE | 2019-11-01 14:26 | Operative Report ---
Post Operative Report Pre & Post Diagnosis Operation Date: 11/01/19 10:55 Pre-Op Diagnosis: Lumbar stenosis with neurogenic claudication Post-Op Diagnosis: Lumbar stenosis with neurogenic claudication I identified the patient and participated in the time-out.: Yes Procedure Operation Date: 11/01/19 10:55 Actual Procedures #1 removal of posterior segmental instrumentation L2-L5. #2 exploration of fusion L2-L5. #3 lumbar decompression with bilateral medial facetectomies and foraminotomies L5-S1. #4 posterior spinal fusion L5-S1. #5 placement posterior instrumentation L4-5 and L5-S1. #6 interbody fusion L5-S1. #7 placement peek cage 13 x 22 mm at L5-S1. #8 placement of locally harvested morselized autograft in the posterior lateral gutters. #9 placement infuse collagen sponge, master graft in the posterior gutters and ostial amp and interbody space. Surgeon Brant Cohen, Robotics Systems Engineer Phong Juarez Estimated Blood Loss 250 Findings Consistent with Post-Op Diagnosis Specimens None Indications This is a 73-year-old female who presents above-mentioned diagnosis after failing extensive course of nonoperative care she is here for surgical invention. Description of Procedure Patient was met with properly discussed all questions were addressed but that point patient was taken back to operative suite underwent intubation placed in a prone position on the Arthur table on top of the Ravinder frame. All bony prominences well-padded eyes inspected to ensure no external pressure placed upon the. This point the lumbar spine was prepped and draped in normal sterile fashion. Sharp dissection with the assistance of Bovie cautery was performed down to and exposing the instrumentation at L2 L3-L4-L5 and the lamina and transverse processes of L5 and the sacral ala bilaterally. Then proceeded remove the hardware bilaterally exploring the fusion mass noting it to be mature and intact. Then performed a complete laminectomy of L5 including bilateral medial facetectomies and foraminotomies addressing severe spinal stenosis. Pedicle screws were then placed in L4-L5 and S1 levels bilaterally with assistance of fluoroscopy and appropriately sized janet placed. By way of a trans-foraminal approach on the right a complete discectomy of L5-S1 was performed endplates curetted to subcortical bleeding bone and a 13 x 22 mm peek cage filled with osteo-bone graft tapped in position. The rods were then locked into final position bilaterally. The transverse processes of L4-5 and the sacral ala burred to subcortical bleeding bone. Infuse collagen sponge master graft local autograft was then placed in the posterior lateral gutters. 15 round JEFF drain inserted. The incision was then closed with 1 Vicryl the fascia 2-0 Vicryl subcutaneously and 4 Monocryl for final skin closure. Steri-Strip sterile dressings placed. Patient waken taken to PACU stable condition. Please note spinal cord monitoring was utilized that the procedure no changes noted. Lastly Phong desai was present at the entire procedure involved the patient positioning complex portions of the surgery and final skin closure. I attest to the content of the Intraoperative Record and any orders documented therein. Any exceptions are noted below.
--- NOTE | 2019-11-01 15:09 | Fluoroscopy Report ---
INTRAOPERATIVE RADIOGRAPHS CLINICAL HISTORY: Lumbar spinal fusion. Fluoroscopy time: 12 seconds. FINDINGS: 2 spot fluoroscopic views of the lumbar spine are presented. There has been discectomy at L 3-L4, L4-L5, and L5-S1 with multilevel laminectomy. Interpedicular screws are present from L4 to S1. The orthopedic hardware appears intact. IMPRESSION: Intraoperative images from lumbar spinal fusion surgery as above. Electronically signed by: Nii Rodríguez M.D. 11/01/2019 3:08 PM
--- NOTE | 2019-11-01 15:45 | Anesthesiology Progress Note ---
Date of Service November 01, 2019 Anesthesia Post Procedure Vital Signs Vital Signs: Temp Pulse Resp BP Pulse Ox 11/01/19 15:20 83 14 129/64 98 11/01/19 15:10 83 10 L 124/67 98 11/01/19 15:00 86 10 L 142/72 H 100 11/01/19 14:51 36.2 C L 113 H 14 179/108 H 100 Pain Intensity Medial Back: Pain Intensity: 3 Transfer of Care Handoff Completed per policy Notes Mental Status: alert / awake / arousable Patient Amnestic to Procedure: Yes Nausea / Vomiting: adequately controlled Pain: adequately controlled Airway Patency, RR, SpO2: stable & adequate BP & HR: stable & adequate Hydration State: stable & adequate Anesthetic Complications: no major complications apparent and Pt Satisfied with anesthetic care
[2019-11-01] MEDS ORDERED: bisacodyL 10 MG SUPP PR PRN (16:35)
[2019-11-01] MEDS ORDERED: ALUMINUM/MAGNESIUM SUSP 30 ML UDC PO PRN (16:35)
[2019-11-01] MEDS ORDERED: TRAMADOL HCL 50 MG TABLET PO PRN (16:35)
[2019-11-01] MEDS ORDERED: LORazepam 0.5 MG TAB PO PRN (16:35)
[2019-11-01] MEDS ORDERED: DO NOT ADMINISTER PNEUMOCOCCAL VACCINE PRN (16:35)
[2019-11-01] MEDS ORDERED: ONDANSETRON 4 MG OD TAB PO PRN (16:35)
[2019-11-01] MEDS ORDERED: ACETAMINOPHEN 1,000 MG/100 ML VIAL IV PRN (16:35)
[2019-11-01] MEDS ORDERED: LORazepam 0.5 MG/1 ML VIAL IV PRN (16:35)
[2019-11-01] MEDS ORDERED: HYDROmorphone INJ 0.5 MG/0.5 ML SYR IV PRN (16:35)
[2019-11-01] MEDS ORDERED: HYDROmorphone INJ 1 MG/ML SYRINGE IV PRN (16:35)
[2019-11-01] MEDS ORDERED: SOD PHOSPHATE/SOD BIPHOSPHATE ENEMA 132 ML BTL PR PRN (16:35)
[2019-11-01] MEDS ORDERED: NALOXONE HCL 0.4 MG/1 ML VIAL/CARP IV PRN (16:35)
[2019-11-01] MEDS ORDERED: FAMOTIDINE 20 MG TAB PO PRN (16:35)
[2019-11-01] MEDS ORDERED: MAGNESIUM HYDROXIDE SUSP 30 ML UDC PO PRN (16:35)
[2019-11-01] MEDS ORDERED: DO NOT ADMINISTER FLU VACCINE PRN (16:35)
--- NOTE | 2019-11-01 17:46 | Consultation ---
Date of Consultation November 01, 2019 Assessment & Plan (1) Post-operative state: (2) Lumbar stenosis with neurogenic claudication: s/p lumbar surgery today, POD 0, and doing well. Management per Ortho. (3) Rheumatoid arthritis: holding MTX/folate supplements last Monday, today and plans to hold next Monday also per her Casino Gaming Inspector. Allergy to steroids noted. No evidence of flare at this time. (4) Sjogren's syndrome: +sicca symptoms including dry mouth and eyes. Takes unknown eye drops at night (not identified in records and patient's pharmacy is closed) and pilocarpine daily. Will cont this per home regimen listed. (5) HTN (hypertension): around goal. Cont lisinopril per home regimen. Bystolic changed to metoprolol which is on formulary. (6) Chronic pain: cont gabapentin, Cymbalta and PRN dilaudid. (7) DVT prophylaxis: SCDs post -operatively and then per Ortho Full Code Dispo-per Ortho spine. Thank you for this consultation. Kelsey Dobbs DO [facility] Hospitalist History of Present Illness Requesting Physician: Dr. Luis Alfredo Cohen Reason for Consultation: post op med management Attending Physician: Brant Cohen DO History of Present Illness 73 yo F with Lumbar stenosis with neurogenic claudication s/p L5-S1 decompression fusion with L2-L5 hardware removal earlier today. Her pain is well controlled on medication. She denies any numbness or weakness in her legs, Nguyễn and JEFF drain in place. She is doing well in general. Full H&P performed including medication reconciliation with patient. Allergies Allergy/AdvReac Type Severity Reaction Status Date / Time cat dander Allergy Unknown RASH Verified 11/01/19 10:01 dog dander Allergy Unknown RASH Verified 11/01/19 10:01 grass pollen-perennial rye, Allergy Unknown RASH Verified 11/01/19 10:01 standar Corticosteroids AdvReac Unknown night Verified 11/01/19 10:01 (Glucocorticoids) sweats Home Medications Home Medications Medication Instructions Recorded Confirmed Type Allergy Shot 1 dose WK 10/09/19 11/01/19 History esomeprazole magnesium [Nexium] 20 mg PO HS 10/09/19 11/01/19 History folic acid 800 mg PO FR@0900 10/09/19 11/01/19 History hydromorphone [Dilaudid] 2 mg PO HS PRN 10/09/19 11/01/19 History lisinopril 5 mg PO QAM 10/09/19 11/01/19 History methotrexate sodium 20 mg PO FR@0800 10/09/19 11/01/19 History nebivolol [Bystolic] 40 mg PO QAM 10/09/19 11/01/19 History pilocarpine HCl 5 mg PO HS 10/09/19 11/01/19 History pregabalin [Lyrica] 75 mg PO BID 10/09/19 11/01/19 History duloxetine 30 mg PO DAILY 11/01/19 11/01/19 History duloxetine 60 mg PO HS 11/01/19 11/01/19 History lidocaine [Salonpas (lidocaine)] 1 patch TOPICAL DAILY PRN 11/01/19 11/01/19 History Patient History Medical History Acid reflux Controlled and stable Chronic cough FOR 3 YRS - CHRONIC AND STABLE- NON PRODUCTIVE History of anesthesia reaction PT REPORTS WAS AWAKE AND TALKING BUT COULDN'T REMEMBER ANYTHING ABOUT IT FOR THREE DAYS AFER (FIRST BACK SURGERY, [facility] 06/2017) NO PROBLEM WITH SECOND BACK SURGERY AUGUST 2017 History of skin cancer & REMOVED HTN (hypertension) Loss of teeth due to extraction Night sweats STARTED fall Rheumatoid arthritis Sjogren's syndrome Spinal stenosis Urinary frequency AT NIGHT Surgical History History of endoscopy History of hysterectomy History of lumbar fusion X2 History of tonsillectomy Family History Other Family history of colon cancer in mother Family history of diabetes mellitus in mother Social History Preferred Language: Setswana Communication Ability: Effective Beliefs That Will Affect Care: None Current Living Situation: Spouse Other Information That Helps Us Care for You: No Feels Safe at Home: Yes Smoking Status: Never smoker Do You Dip or Chew Tobacco: No ; Hx Alcohol Use: No Hx Substance Use: No Review of Systems Review of Systems: All systems reviewed & are unremarkable except as noted in HPI & below Physical Exam Physical Exam: CONSTITUTIONAL: WNWD, vitals as above, generally well- appearing EYES: pupils are round and equal bilaterally, normal conjunctivae, no scleral icterus ENT: external ear and nose normal, MMM NECK: trachea midline RESPIRATORY: clear to auscultation bilaterally, no crackles, rales or wheezes, normal respiratory effort CARDIOVASCULAR: regular rate and rhythm, S1 and 2 heard without murmurs, gallops or rubs, no JVD, no peripheral edema GASTROINTESTINAL: normal bowel sounds, soft, nontender, nondistended MUSCULOSKELETAL: strength 5/5 throughout, head is normocephalic and atraumatic SKIN: warm and dry, lower back incision covered with surgical dressing. JEFF drain in place. NEUROLOGIC: patellar DTRs 2+ bilat. No facial palsy, no dysarthria. CN 2-12 grossly intact, no sensory deficit, normal cognition, normal speech, no tremor. No gross focal deficits. PSYCHIATRIC: alert cooperative and oriented to person, place and time. Results & Data ([facility]) Vital Signs (Past 12 Hours) Vital Signs Temp Pulse Resp BP Pulse Ox 11/01/19 17:32 36.3 C L 94 H 18 134/71 94 11/01/19 16:55 36.4 C L 84 18 133/73 99 11/01/19 16:10 85 12 117/71 99 11/01/19 16:00 36.6 C 84 12 118/72 99 11/01/19 15:50 86 14 103/74 98 11/01/19 15:40 88 12 136/72 98 11/01/19 15:30 90 14 137/78 95 11/01/19 15:20 83 14 129/64 98 11/01/19 15:10 83 10 L 124/67 98 11/01/19 15:00 86 10 L 142/72 H 100 11/01/19 14:51 36.2 C L 113 H 14 179/108 H 100 Medications Administered Current Inpatient Medications Acetaminophen (Tylenol) 1,000 mg PO PREOP [facility] Stop: 11/01/19 18:00 Last Admin: 11/01/19 10:31 Dose: 1,000 mg Documented by: Acetaminophen (Tylenol) 1,000 mg PO Q8H PRN PRN Reason: MILD Pain Scale 1,2,3 & Pre PT Stop: 12/01/19 16:34 Al Hydrox/Mg Hydrox/Simethicone (Maalox) 30 ml PO Q6H PRN PRN Reason: Dyspepsia Stop: 12/01/19 16:34 Bisacodyl (Dulcolax) 10 mg MD DAILY PRN PRN Reason: Constipation Stop: 12/01/19 16:34 Celecoxib (Celebrex) 200 mg PO PREOP [facility]SMAN Stop: 11/01/19 18:00 Last Admin: 11/01/19 10:31 Dose: 200 mg Documented by: Diphenhydramine HCl (Benadryl Capsule) 25 mg PO Q6H PRN PRN Reason: Allergic Rhinitis/Insomnia Stop: 12/01/19 16:34 Duloxetine HCl (Cymbalta) 60 mg PO QAM [facility] Stop: 12/02/19 08:59 Duloxetine HCl (Cymbalta) 90 mg PO HS [facility] Stop: 12/01/19 20:59 Famotidine (Pepcid) 20 mg PO Q12H PRN PRN Reason: Dyspepsia Stop: 12/01/19 16:34 Folic Acid (Folvite) 1 mg PO DAILY [facility] Stop: 12/02/19 08:59 Gabapentin (Neurontin) 300 mg PO PREOP [facility] Stop: 11/01/19 18:00 Last Admin: 11/01/19 10:31 Dose: 300 mg Documented by: Hydromorphone HCl (Dilaudid) 2 mg PO HS [facility] Stop: 11/15/19 20:59 Hydromorphone HCl (Dilaudid) 0.5 mg IV Q3H PRN PRN Reason: MOD pain (scale 4-6) & Pre PT Stop: 11/15/19 16:34 Hydromorphone HCl (Dilaudid) 1 mg IV Q3H PRN PRN Reason: severe pain (scale 7-10) Stop: 11/15/19 16:34 Hydroxyzine HCl (Vistaril) 25 mg PO Q8H PRN PRN Reason: Anxiety Stop: 12/01/19 16:34 Lactated Ringer's (Lr) 1,000 mls @ 15 mls/hr IV .Q24H [facility] Stop: 11/02/19 05:59 Last Infusion: 11/01/19 12:25 Dose: Infused Documented by: Cefazolin Sodium (Ancef 2000mg) 2,000 mg in 15 mls @ 3.75 mls/min IV PREOP [facility]AN; Protocol Stop: 11/02/19 05:59 Last Admin: 11/01/19 12:17 Dose: 3.75 mls/min Documented by: Promethazine HCl 12.5 mg/ (Sodium Chloride) 50.5 mls @ 204 mls/hr IV Q6H PRN PRN Reason: Nausea &/or Vomiting Stop: 12/01/19 16:34 Lorazepam (Ativan) 0.5 mg in 1 mls @ 0.5 mls/min IV Q8H PRN PRN Reason: Sedation/Anxiety Stop: 12/01/19 16:34 Sodium Chloride (Nss 1000ml) 1,000 mls @ 100 mls/hr IV .Q10H [facility] Stop: 12/01/19 16:34 Acetaminophen (Ofirmev) 1,000 mg in 100 mls @ 400 mls/hr IV Q8H PRN PRN Reason: MILD Pain Rating 1,2,3 Stop: 11/02/19 16:34 Cefazolin Sodium (Ancef 2000mg) 2,000 mg in 15 mls @ 3.75 mls/min IV Q8H [facility]; Protocol Stop: 11/02/19 00:38 Influenza Virus Vaccine Quadrival (Flu Vaccine, Do Not Administer) 1 ea N/A PRN PRN PRN Reason: Notification Stop: 12/01/19 16:34 Lisinopril (Zestril) 5 mg PO QAM [facility] Stop: 12/02/19 08:59 Lorazepam (Ativan) 0.5 mg PO Q8H PRN PRN Reason: Sedation/Anxiety Stop: 12/01/19 16:34 Magnesium Hydroxide (Milk Of Magnesia) 30 ml PO DAILY PRN PRN Reason: Constipation Stop: 12/01/19 16:34 Metoclopramide HCl (Reglan) 10 mg IV Q6H PRN PRN Reason: Nausea &/or Vomiting Stop: 12/01/19 16:34 Naloxone HCl (Narcan) 0.1 mg IV Q5M PRN; Protocol PRN Reason: Oversedation/Resp Depression Stop: 12/01/19 16:34 Non-Formulary Medication (Esomeprazole Magnesium [Nexium]) 20 mg PO HS [facility] Stop: 12/01/19 20:59 Non-Formulary Medication (Nebivolol [Bystolic]) 40 mg PO QAM [facility] Stop: 12/02/19 08:59 Ondansetron HCl (Zofran) 4 mg IV Q6H PRN PRN Reason: Nausea &/or Vomiting Stop: 12/01/19 16:34 Ondansetron HCl (Zofran Odt) 4 mg PO Q6H PRN PRN Reason: Nausea Stop: 12/01/19 16:34 Oxycodone HCl (Roxicodone Immediate Rel) 5 - 10 mg PO Q4H PRN PRN Reason: Moderate-Severe Pain & Pre PT Stop: 11/15/19 16:34 Pilocarpine HCl (Salagen) 5 mg PO HS [facility] Stop: 12/01/19 20:59 Pilocarpine HCl (Salagen) 10 mg PO QAM [facility] Stop: 12/02/19 08:59 Pneumococcal Polyvalent Vaccine (Pneumococcal Vacc, Do Not Administer) 1 ea N/A PRN PRN PRN Reason: Notification Stop: 12/01/19 16:34 Polyethylene Glycol (Miralax Powder Packet) 17 gm PO Q6 [facility] Stop: 12/02/19 05:59 Pregabalin (Lyrica) 75 mg PO BID [facility] Stop: 12/01/19 20:59 Senna/Docusate Sodium (Senokot S) 2 tab PO HS [facility] Stop: 12/01/19 20:59 Sodium Biphosphate/Sodium Phosphate (Fleet Enema) 132 ml MD ONE PRN PRN Reason: Constipation Stop: 12/01/19 16:34 Tramadol HCl (Ultram) 50 - 100 mg PO Q4H PRN PRN Reason: Moderate-Severe Pain & Pre PT Stop: 12/01/19 16:34
[2019-11-01] MEDS: SODIUM CHLORIDE 0.9% 1000ML 1,000 ML IV SCH (17:56)
[2019-11-01] MEDS: OXYCODONE HCL IR 5 MG TAB (IMMEDIATE RELEASE) PO PRN ×2 (18:00→22:26)
[2019-11-01] MEDS ORDERED: LIDOCAINE TOP PRN (19:17)
[2019-11-01] MEDS ORDERED: HYDROmorphone HCL 2 MG TAB PO PRN (19:20)
[2019-11-01] MEDS ORDERED: ARTIFICIAL TEARS OPB PRN (19:31)
[2019-11-01] MEDS ORDERED: HYDROmorphone HCL 2 MG TAB PO SCH (21:00)
[2019-11-01] MEDS ORDERED: DULOXETINE HCL 30 MG CAP PO SCH (21:00)
[2019-11-01] MEDS: PREGABALIN 75 MG CAP PO SCH (22:10)
[2019-11-01] MEDS: CEFAZOLIN 2000MG 2,000 MG/15 ML SYR IV SCH (22:10)
[2019-11-01] MEDS: PANTOprazole 40 MG TAB PO SCH (22:14)
[2019-11-01] MEDS: METOPROLOL TARTRATE 100 MG TAB PO SCH (22:14)
[2019-11-01] MEDS: DULOXETINE HCL 60 MG CAP PO SCH (22:14)
[2019-11-01] MEDS: PILOCARPINE HCL 5 MG TABLET PO SCH (22:15)
[2019-11-01] MEDS: DOCUSATE SODIUM/SENNA 50/8.6MG TAB PO SCH (22:15)
[2019-11-02] MEDS: CEFAZOLIN 2000MG 2,000 MG/15 ML SYR IV SCH (03:15)
[2019-11-02] MEDS: SODIUM CHLORIDE 0.9% 1000ML 1,000 ML IV SCH (04:07)
[2019-11-02] MEDS: OXYCODONE HCL IR 5 MG TAB (IMMEDIATE RELEASE) PO PRN (05:56)
[2019-11-02] MEDS: POLYETHYLENE (MIRALAX) 17 GM PACK PO SCH ×4 (05:56→23:52)
[2019-11-02 06:01] LABS: Basophils # (auto) 0.01 K/uL (0-0.2); Basophils % (auto) 0.1 %; Hematocrit (blood only) 24.6 % (37-47); Hemoglobin 7.7 g/dL (12.0-16.0); Immature Granulocytes # (auto) 0.04 K/uL (0.00-0.02); Immature Granulocytes % (auto) 0.3 %; Lymphocytes # (auto) 0.75 K/uL (1.2-3.4); Lymphocytes % (auto) 5.2 %; Mean Corpuscular Hemoglobin 22.3 pg (25-34); Mean Corpuscular Hgb Conc 31.3 g/dL (32-36); Mean Corpuscular Volume 71.3 fL (80-100); Mean Platelet Volume 8.5 fL (7.4-10.4); Monocytes # (auto) 0.96 K/uL (0.11-0.59); Monocytes % (auto) 6.7 %; Neutrophils # (auto) 12.62 K/uL (1.4-6.5); Neutrophils % (auto) 87.7 %; Platelet Count 281 K/uL (130-400); RDW Coefficient of Variation 19.5 % (11.5-14.5); RDW Standard Deviation 50.4 fL (36.4-46.3); Red Blood Count 3.45 M/uL (4.2-5.4); White Blood Count 14.38 K/uL (4.8-10.8)
[2019-11-02 06:24] LABS: BUN Creatinine Ratio 9.8 (10-20); Calcium 9.2 mg/dl (8.5-10.1); Creatinine Clr Calc Pharmacy 78.3 ml/min; Est GFR (African American) 91.5; Est GFR (Non-African American) 78.9; Potassium 4.4 mmol/L (3.5-5.1)
[2019-11-02 07:07] LABS: Hypochromasia Present; Microcytosis Present; Ovalocytes 1+
[2019-11-02] MEDS: PREGABALIN 75 MG CAP PO SCH ×2 (08:50→20:31)
[2019-11-02] MEDS: METOPROLOL TARTRATE 100 MG TAB PO SCH ×2 (08:51→20:32)
[2019-11-02] MEDS: DULOXETINE HCL 30 MG CAP PO SCH (08:51)
[2019-11-02] MEDS: lisinopriL 5 MG TAB PO SCH (08:51)
[2019-11-02] MEDS ORDERED: FOLIC ACID 1 MG TAB PO SCH (09:00)
[2019-11-02] MEDS ORDERED: DULOXETINE HCL 60 MG CAP PO SCH (09:00)
[2019-11-02] MEDS ORDERED: PILOCARPINE HCL 5 MG TABLET PO SCH (09:00)
[2019-11-02] MEDS ORDERED: SODIUM CHLORIDE 0.9% 250 ML IV PRN ×2 (09:58→10:13)
[2019-11-02] MEDS: DEXAMETHASONE SOD PHOSPHATE 8 MG in SYRINGE 0 ML IV SCH (10:00)
--- NOTE | 2019-11-02 10:00 | Orthopedic Progress Note ---
Date of Service November 02, 2019 Assessment & Plan (1) Lumbar stenosis with neurogenic claudication: I am going to transfuse 2 units of blood today. We will have her just ambulate about the room and begin more formal physical therapy Monday. Present on Admission?: Yes Admission and Anticipated Discharge Date Admission Date: November 01, 2019 Subjective Back pain controlled leg symptoms improved. Physical Exam Physical Exam: Patient is good strength testing peers comfortable. Results & Data ([facility]) Vital Signs (Past 12 Hours) Vital Signs Temp Pulse Resp BP BP Pulse Ox 11/02/19 08:29 66 127/73 96 11/02/19 07:18 36.7 C 55 L 16 143/77 H 91 11/02/19 03:26 36.9 C 64 16 164/74 H 95 11/01/19 22:51 37.0 C 84 16 156/81 H 97
--- NOTE | 2019-11-02 11:04 | Hospitalist Progress Note ---
Date of Service November 02, 2019 Assessment & Plan (1) Acute blood loss as cause of postoperative anemia: Hb 7.7 this morning from preop 9.8. Transfusing 2 units of blood. Trend CBC in am. (2) Post-operative state: (3) Lumbar stenosis with neurogenic claudication: s/p lumbar surgery POD 1, and doing well. Some increased pain which is expected on this day. Management per Ortho. (4) Rheumatoid arthritis: holding MTX/folate supplements last Monday, today and plans to hold next Monday also per her [employer]. Allergy to steroids noted. No evidence of flare at this time. (5) Sjogren's syndrome: +sicca symptoms including dry mouth and eyes. Takes unknown eye drops at night (not identified in records and patient's pharmacy is closed) and pilocarpine daily. Will cont this per home regimen listed. Artificial tears PRN (6) HTN (hypertension): around goal. Cont lisinopril per home regimen. Bystolic changed to metoprolol which is on formulary. (7) Chronic pain: cont gabapentin, Cymbalta and PRN dilaudid. (8) DVT prophylaxis: SCDs post -operatively and then per Ortho Full Code Dispo-per Ortho spine. Thank you for this consultation. Kelsey Dobbs DO [facility] Hospitalist Admission and Anticipated Discharge Date Admission Date: November 01, 2019 Subjective Pt feels a little more sore today Pain medication is controlling it Denies CP/SOB Required 2 units of blood today Review of Systems Review of Systems: All systems reviewed & are unremarkable except as noted in Subjective Physical Exam Physical Exam: CONSTITUTIONAL: WNWD, vitals as above, generally well- appearing EYES: normal conjunctivae, no scleral icterus ENT: external ear and nose normal, MMM NECK: trachea midline RESPIRATORY: clear to auscultation bilaterally, no crackles, rales or wheezes, normal respiratory effort CARDIOVASCULAR: regular rate and rhythm, S1 and 2 heard without murmurs, gallops or rubs, no JVD, no peripheral edema GASTROINTESTINAL: normal bowel sounds, soft, nontender, nondistended MUSCULOSKELETAL: strength 5/5 throughout, head is normocephalic and atraumatic SKIN: warm and dry, lower back incision covered with surgical dressing. NEUROLOGIC: CN 2-12 grossly intact, no sensory deficit, normal cognition, normal speech, no tremor. No gross focal deficits. PSYCHIATRIC: alert cooperative and oriented to person, place and time. Results & Data Results & Data ([facility]) Vital Signs (Past 12 Hours) Vital Signs Temp Pulse Resp BP BP Pulse Ox 11/02/19 08:29 66 127/73 96 11/02/19 07:18 36.7 C 55 L 16 143/77 H 91 11/02/19 03:26 36.9 C 64 16 164/74 H 95 Laboratory Results Short CBC 11/02/19 Range/Units 05:28 WBC 14.38 H (4.8-10.8) K/uL Hgb 7.7 L (12.0-16.0) g/dL Hct 24.6 L (37-47) % Plt Count 281 (130-400) K/uL BMP 11/02/19 05:28 Sodium 136 Potassium 4.4 Chloride 103 Carbon Dioxide 25 BUN 7 Creatinine 0.76 Glucose 127 H Calcium 9.2 Medications Administered Current Inpatient Medications Acetaminophen (Tylenol) 1,000 mg PO Q8H PRN PRN Reason: MILD Pain Scale 1,2,3 & Pre PT Stop: 12/01/19 16:34 Al Hydrox/Mg Hydrox/Simethicone (Maalox) 30 ml PO Q6H PRN PRN Reason: Dyspepsia Stop: 12/01/19 16:34 Artificial Tears (Artificial Tears) 1 - 2 drops OPB Q4H PRN PRN Reason: dry eyes Stop: 12/01/19 19:30 Bisacodyl (Dulcolax) 10 mg MS DAILY PRN PRN Reason: Constipation Stop: 12/01/19 16:34 Diphenhydramine HCl (Benadryl Capsule) 25 mg PO Q6H PRN PRN Reason: Allergic Rhinitis/Insomnia Stop: 12/01/19 16:34 Duloxetine HCl (Cymbalta) 30 mg PO DAILY [facility] Stop: 12/02/19 08:59 Last Admin: 11/02/19 08:51 Dose: 30 mg Documented by: Duloxetine HCl (Cymbalta) 60 mg PO HS [facility] Stop: 12/01/19 20:59 Last Admin: 11/01/19 22:14 Dose: 60 mg Documented by: Famotidine (Pepcid) 20 mg PO Q12H PRN PRN Reason: Dyspepsia Stop: 12/01/19 16:34 Hydromorphone HCl (Dilaudid) 0.5 mg IV Q3H PRN PRN Reason: MOD pain (scale 4-6) & Pre PT Stop: 11/15/19 16:34 Last Admin: 11/02/19 08:50 Dose: 0.5 mg Documented by: Hydromorphone HCl (Dilaudid) 1 mg IV Q3H PRN PRN Reason: severe pain (scale 7-10) Stop: 11/15/19 16:34 Hydromorphone HCl (Dilaudid) 2 mg PO HS PRN PRN Reason: pain Stop: 11/15/19 20:59 Hydroxyzine HCl (Vistaril) 25 mg PO Q8H PRN PRN Reason: Anxiety Stop: 12/01/19 16:34 Promethazine HCl 12.5 mg/ (Sodium Chloride) 50.5 mls @ 204 mls/hr IV Q6H PRN PRN Reason: Nausea &/or Vomiting Stop: 12/01/19 16:34 Lorazepam (Ativan) 0.5 mg in 1 mls @ 0.5 mls/min IV Q8H PRN PRN Reason: Sedation/Anxiety Stop: 12/01/19 16:34 Acetaminophen (Ofirmev) 1,000 mg in 100 mls @ 400 mls/hr IV Q8H PRN PRN Reason: MILD Pain Rating 1,2,3 Stop: 11/02/19 16:34 Dexamethasone Sodium Phosphate (8 mg/ Syringe) 2 mls @ 1 mls/min IV DAILY@0900 [facility] Stop: 12/02/19 09:59 Sodium Chloride (Nss) 250 mls @ 15 mls/hr IV .[id number] PRN PRN Reason: For Transfusion Stop: 11/02/19 19:58 Sodium Chloride (Nss) 250 mls @ 15 mls/hr IV .[id number] PRN PRN Reason: For Transfusion Stop: 11/02/19 20:14 Influenza Virus Vaccine Quadrival (Flu Vaccine, Do Not Administer) 1 ea N/A PRN PRN PRN Reason: Notification Stop: 12/01/19 16:34 Lisinopril (Zestril) 5 mg PO QAM [facility] Stop: 12/02/19 08:59 Last Admin: 11/02/19 08:51 Dose: 5 mg Documented by: Lorazepam (Ativan) 0.5 mg PO Q8H PRN PRN Reason: Sedation/Anxiety Stop: 12/01/19 16:34 Magnesium Hydroxide (Milk Of Magnesia) 30 ml PO DAILY PRN PRN Reason: Constipation Stop: 12/01/19 16:34 Metoclopramide HCl (Reglan) 10 mg IV Q6H PRN PRN Reason: Nausea &/or Vomiting Stop: 12/01/19 16:34 Metoprolol Tartrate (Lopressor) 200 mg PO BID [facility] Stop: 12/01/19 20:59 Last Admin: 11/02/19 08:51 Dose: 200 mg Documented by: Naloxone HCl (Narcan) 0.1 mg IV Q5M PRN; Protocol PRN Reason: Oversedation/Resp Depression Stop: 12/01/19 16:34 Ondansetron HCl (Zofran) 4 mg IV Q6H PRN PRN Reason: Nausea &/or Vomiting Stop: 12/01/19 16:34 Ondansetron HCl (Zofran Odt) 4 mg PO Q6H PRN PRN Reason: Nausea Stop: 12/01/19 16:34 Oxycodone HCl (Roxicodone Immediate Rel) 5 - 10 mg PO Q4H PRN PRN Reason: Moderate-Severe Pain & Pre PT Stop: 11/15/19 16:34 Last Admin: 11/02/19 05:56 Dose: 10 mg Documented by: Pantoprazole Sodium (Protonix) 40 mg PO [facility] Stop: 12/01/19 20:59 Last Admin: 11/01/19 22:14 Dose: 40 mg Documented by: Pilocarpine HCl (Salagen) 5 mg PO [facility] Stop: 12/01/19 20:59 Last Admin: 11/01/19 22:15 Dose: 5 mg Documented by: Pneumococcal Polyvalent Vaccine (Pneumococcal Vacc, Do Not Administer) 1 ea N/A PRN PRN PRN Reason: Notification Stop: 12/01/19 16:34 Polyethylene Glycol (Miralax Powder Packet) 17 gm PO Q6 [facility] Stop: 12/02/19 05:59 Last Admin: 11/02/19 05:56 Dose: Not Given Documented by: Pregabalin (Lyrica) 75 mg PO BID [facility] Stop: 12/01/19 20:59 Last Admin: 11/02/19 08:50 Dose: 75 mg Documented by: Senna/Docusate Sodium (Senokot S) 2 tab PO HS [facility] Stop: 12/01/19 20:59 Last Admin: 11/01/19 22:15 Dose: 2 tab Documented by: Sodium Biphosphate/Sodium Phosphate (Fleet Enema) 132 ml MS ONE PRN PRN Reason: Constipation Stop: 12/01/19 16:34 Tramadol HCl (Ultram) 50 - 100 mg PO Q4H PRN PRN Reason: Moderate-Severe Pain & Pre PT Stop: 12/01/19 16:34
[2019-11-02] MEDS: RESTASIS - ORDER AWAITING ACTION SCH ×2 (16:42→23:10)
[2019-11-02] MEDS: ACETAMINOPHEN 500 MG TAB PO PRN (18:06)
[2019-11-02] MEDS: DULOXETINE HCL 60 MG CAP PO SCH (20:31)
[2019-11-02] MEDS: PANTOprazole 40 MG TAB PO SCH (20:32)
[2019-11-02] MEDS: PILOCARPINE HCL 5 MG TABLET PO SCH (20:33)
[2019-11-02] MEDS: DOCUSATE SODIUM/SENNA 50/8.6MG TAB PO SCH (20:33)
[2019-11-03 06:02] LABS: Hematocrit (blood only) 26.3 % (37-47); Hemoglobin 8.5 g/dL (12.0-16.0); Mean Corpuscular Hemoglobin 23.7 pg (25-34); Mean Corpuscular Hgb Conc 32.3 g/dL (32-36); Mean Corpuscular Volume 73.5 fL (80-100); Mean Platelet Volume 8.6 fL (7.4-10.4); Platelet Count 229 K/uL (130-400); RDW Coefficient of Variation 19.5 % (11.5-14.5); RDW Standard Deviation 52.8 fL (36.4-46.3); Red Blood Count 3.58 M/uL (4.2-5.4); White Blood Count 15.15 K/uL (4.8-10.8)
[2019-11-03] MEDS: POLYETHYLENE (MIRALAX) 17 GM PACK PO SCH ×4 (06:24→23:45)
[2019-11-03] MEDS: RESTASIS - ORDER AWAITING ACTION SCH ×3 (08:09→23:45)
[2019-11-03] MEDS: lisinopriL 5 MG TAB PO SCH (08:14)
[2019-11-03] MEDS: METOPROLOL TARTRATE 100 MG TAB PO SCH ×2 (08:15→20:28)
[2019-11-03] MEDS: DULOXETINE HCL 30 MG CAP PO SCH (08:15)
[2019-11-03] MEDS: DEXAMETHASONE SOD PHOSPHATE 8 MG in SYRINGE 0 ML IV SCH ×2 (08:16→08:26)
[2019-11-03] MEDS: PREGABALIN 75 MG CAP PO SCH ×2 (08:18→20:29)
--- NOTE | 2019-11-03 08:58 | Hospitalist Progress Note ---
Date of Service November 03, 2019 Assessment & Plan (1) Acute blood loss as cause of postoperative anemia: Hb 8.3 from 7.7. Doing well. Will repeat the H.H again in am. (2) Post-operative state: (3) Lumbar stenosis with neurogenic claudication: s/p lumbar surgery POD 2, and doing well. Chronic pain here today Management per Ortho. 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 Allergy to steroids noted. No evidence of flare at this time. (5) Sjogren's syndrome: +sicca symptoms including dry mouth and eyes. Takes unknown eye drops at night (not identified in records and patient's pharmacy is closed) and pilocarpine daily. Will cont this per home regimen listed. Artificial tears PRN (6) HTN (hypertension): around goal. Cont lisinopril per home regimen. Bystolic changed to metoprolol which is on formulary. (7) Chronic pain: cont gabapentin, Cymbalta and PRN dilaudid. (8) DVT prophylaxis: SCDs Full Code Dispo-per Ortho spine. Thank you for this consultation. Kelsey Dobbs DO [facility] Hospitalist Admission and Anticipated Discharge Date Admission Date: November 01, 2019 Subjective doing well pain and discomfort improved since yesterday responded somewhat to blood, not fully Review of Systems Review of Systems: All systems reviewed & are unremarkable except as noted in Subjective Physical Exam Physical Exam: CONSTITUTIONAL: WNWD, vitals as above, generally well- appearing EYES: normal conjunctivae, no scleral icterus ENT: external ear and nose normal, MMM NECK: trachea midline RESPIRATORY: clear to auscultation bilaterally, no crackles, rales or wheezes, normal respiratory effort CARDIOVASCULAR: regular rate and rhythm, S1 and 2 heard without murmurs, gallops or rubs, no JVD, no peripheral edema GASTROINTESTINAL: normal bowel sounds, soft, nontender, nondistended MUSCULOSKELETAL: strength 5/5 throughout, head is normocephalic and atraumatic SKIN: warm and dry, lower back incision covered with surgical dressing. NEUROLOGIC: CN 2-12 grossly intact, no sensory deficit, normal cognition, normal speech, no tremor. No gross focal deficits. PSYCHIATRIC: alert cooperative and oriented to person, place and time. Results & Data Results & Data ([facility]) Vital Signs (Past 12 Hours) Vital Signs Temp Pulse Resp BP BP Pulse Ox 11/03/19 06:40 36.6 C 63 19 171/70 H 95 11/02/19 23:03 36.9 C 61 19 183/86 H 95 Laboratory Results Short CBC 11/03/19 Range/Units 05:34 WBC 15.15 H (4.8-10.8) K/uL Hgb 8.5 L (12.0-16.0) g/dL Hct 26.3 L (37-47) % Plt Count 229 (130-400) K/uL Medications Administered Current Inpatient Medications Acetaminophen (Tylenol) 1,000 mg PO Q8H PRN PRN Reason: MILD Pain Scale 1,2,3 & Pre PT Stop: 12/01/19 16:34 Last Admin: 11/02/19 18:06 Dose: 1,000 mg Documented by: Al Hydrox/Mg Hydrox/Simethicone (Maalox) 30 ml PO Q6H PRN PRN Reason: Dyspepsia Stop: 12/01/19 16:34 Artificial Tears (Artificial Tears) 1 - 2 drops OPB Q4H PRN PRN Reason: dry eyes Stop: 12/01/19 19:30 Bisacodyl (Dulcolax) 10 mg NM DAILY PRN PRN Reason: Constipation Stop: 12/01/19 16:34 Diphenhydramine HCl (Benadryl Capsule) 25 mg PO Q6H PRN PRN Reason: Allergic Rhinitis/Insomnia Stop: 12/01/19 16:34 Duloxetine HCl (Cymbalta) 30 mg PO DAILY [facility] Stop: 12/02/19 08:59 Last Admin: 11/03/19 08:15 Dose: 30 mg Documented by: Duloxetine HCl (Cymbalta) 60 mg PO HS [facility] Stop: 12/01/19 20:59 Last Admin: 11/02/19 20:31 Dose: 60 mg Documented by: Famotidine (Pepcid) 20 mg PO Q12H PRN PRN Reason: Dyspepsia Stop: 12/01/19 16:34 Hydromorphone HCl (Dilaudid) 0.5 mg IV Q3H PRN PRN Reason: MOD pain (scale 4-6) & Pre PT Stop: 11/15/19 16:34 Last Admin: 11/02/19 08:50 Dose: 0.5 mg Documented by: Hydromorphone HCl (Dilaudid) 1 mg IV Q3H PRN PRN Reason: severe pain (scale 7-10) Stop: 11/15/19 16:34 Hydromorphone HCl (Dilaudid) 2 mg PO HS PRN PRN Reason: pain Stop: 11/15/19 20:59 Hydroxyzine HCl (Vistaril) 25 mg PO Q8H PRN PRN Reason: Anxiety Stop: 12/01/19 16:34 Promethazine HCl 12.5 mg/ (Sodium Chloride) 50.5 mls @ 204 mls/hr IV Q6H PRN PRN Reason: Nausea &/or Vomiting Stop: 12/01/19 16:34 Lorazepam (Ativan) 0.5 mg in 1 mls @ 0.5 mls/min IV Q8H PRN PRN Reason: Sedation/Anxiety Stop: 12/01/19 16:34 Dexamethasone Sodium Phosphate (8 mg/ Syringe) 2 mls @ 1 mls/min IV DAILY@0900 [facility] Stop: 12/02/19 09:59 Last Admin: 11/03/19 08:26 Dose: 1 mls/min Documented by: Influenza Virus Vaccine Quadrival (Flu Vaccine, Do Not Administer) 1 ea N/A PRN PRN PRN Reason: Notification Stop: 12/01/19 16:34 Lisinopril (Zestril) 5 mg PO QAM [facility] Stop: 12/02/19 08:59 Last Admin: 11/03/19 08:14 Dose: 5 mg Documented by: Lorazepam (Ativan) 0.5 mg PO Q8H PRN PRN Reason: Sedation/Anxiety Stop: 12/01/19 16:34 Magnesium Hydroxide (Milk Of Magnesia) 30 ml PO DAILY PRN PRN Reason: Constipation Stop: 12/01/19 16:34 Metoclopramide HCl (Reglan) 10 mg IV Q6H PRN PRN Reason: Nausea &/or Vomiting Stop: 12/01/19 16:34 Metoprolol Tartrate (Lopressor) 200 mg PO BID [facility] Stop: 12/01/19 20:59 Last Admin: 11/03/19 08:15 Dose: 200 mg Documented by: Miscellaneous (Order Awaiting Action) 1 ea N/A QS [facility] Stop: 12/02/19 15:59 Last Admin: 11/03/19 08:09 Dose: Not Given Documented by: Naloxone HCl (Narcan) 0.1 mg IV Q5M PRN; Protocol PRN Reason: Oversedation/Resp Depression Stop: 12/01/19 16:34 Ondansetron HCl (Zofran) 4 mg IV Q6H PRN PRN Reason: Nausea &/or Vomiting Stop: 12/01/19 16:34 Ondansetron HCl (Zofran Odt) 4 mg PO Q6H PRN PRN Reason: Nausea Stop: 12/01/19 16:34 Oxycodone HCl (Roxicodone Immediate Rel) 5 - 10 mg PO Q4H PRN PRN Reason: Moderate-Severe Pain & Pre PT Stop: 11/15/19 16:34 Last Admin: 11/02/19 05:56 Dose: 10 mg Documented by: Pantoprazole Sodium (Protonix) 40 mg PO HS [facility] Stop: 12/01/19 20:59 Last Admin: 11/02/19 20:32 Dose: 40 mg Documented by: Pilocarpine HCl (Salagen) 5 mg PO HS [facility] Stop: 12/01/19 20:59 Last Admin: 11/02/19 20:33 Dose: 5 mg Documented by: Pneumococcal Polyvalent Vaccine (Pneumococcal Vacc, Do Not Administer) 1 ea N/A PRN PRN PRN Reason: Notification Stop: 12/01/19 16:34 Polyethylene Glycol (Miralax Powder Packet) 17 gm PO Q6 [facility] Stop: 12/02/19 05:59 Last Admin: 11/03/19 06:24 Dose: Not Given Documented by: Pregabalin (Lyrica) 75 mg PO BID [facility] Stop: 12/01/19 20:59 Last Admin: 11/03/19 08:18 Dose: 75 mg Documented by: Senna/Docusate Sodium (Senokot S) 2 tab PO HS [facility] Stop: 12/01/19 20:59 Last Admin: 11/02/19 20:33 Dose: 2 tab Documented by: Sodium Biphosphate/Sodium Phosphate (Fleet Enema) 132 ml NM ONE PRN PRN Reason: Constipation Stop: 12/01/19 16:34 Tramadol HCl (Ultram) 50 - 100 mg PO Q4H PRN PRN Reason: Moderate-Severe Pain & Pre PT Stop: 12/01/19 16:34
--- NOTE | 2019-11-03 10:51 | Orthopedic Progress Note ---
Date of Service November 03, 2019 Assessment & Plan (1) Lumbar stenosis with neurogenic claudication: This time we will continue physical therapy monitor her JEFF output anticipate possible discharge home tomorrow. Present on Admission?: Yes Admission and Anticipated Discharge Date Admission Date: November 01, 2019 Subjective Patient's back pain is controlled leg symptoms are markedly improved. Physical Exam Physical Exam: Patient is in the chair at the bedside. She is good strength testing. Appears comfortable. Results & Data ([facility]) Vital Signs (Past 12 Hours) Vital Signs Temp Pulse Pulse Resp BP BP Pulse Ox 11/03/19 10:46 66 120/78 11/03/19 06:40 36.6 C 63 19 171/70 H 95 11/02/19 23:03 36.9 C 61 19 183/86 H 95
[2019-11-03] MEDS: ACETAMINOPHEN 500 MG TAB PO PRN (19:31)
[2019-11-03] MEDS: DULOXETINE HCL 60 MG CAP PO SCH (20:28)
[2019-11-03] MEDS: PANTOprazole 40 MG TAB PO SCH (20:29)
[2019-11-03] MEDS: PILOCARPINE HCL 5 MG TABLET PO SCH (20:29)
[2019-11-03] MEDS: DOCUSATE SODIUM/SENNA 50/8.6MG TAB PO SCH (20:30)
[2019-11-03] MEDS ORDERED: lisinopriL 5 MG TAB PO ONE (22:14)
[2019-11-04] MEDS: POLYETHYLENE (MIRALAX) 17 GM PACK PO SCH (05:02)
[2019-11-04 06:08] LABS: Albumin Globulin Ratio 1.1 (0.9-2); Albumin Level 3.2 gm/dl (3.4-5.0); BUN Creatinine Ratio 18.1 (10-20); Bilirubin,Total 0.5 mg/dl (0.2-1); Calcium 8.4 mg/dl (8.5-10.1); Creatinine Clr Calc Pharmacy 88.9 ml/min; Est GFR (African American) 102.5; Est GFR (Non-African American) 88.4; Potassium 3.6 mmol/L (3.5-5.1); Total Protein 6.2 gm/dl (6.4-8.2)
[2019-11-04] MEDS: RESTASIS - ORDER AWAITING ACTION SCH (07:30)
[2019-11-04] MEDS: METOPROLOL TARTRATE 100 MG TAB PO SCH (07:33)
[2019-11-04] MEDS: PREGABALIN 75 MG CAP PO SCH (07:41)
[2019-11-04] MEDS: OXYCODONE HCL IR 5 MG TAB (IMMEDIATE RELEASE) PO PRN (07:45)
[2019-11-04] MEDS ORDERED: lisinopriL 10 MG TAB PO SCH (09:00)
[2019-11-04] MEDS: DEXAMETHASONE SOD PHOSPHATE 8 MG in SYRINGE 0 ML IV SCH (09:48)
--- NOTE | 2019-11-04 09:53 | Discharge Summary ---
Date of Service November 04, 2019 Admission HPI Per Admitting Provider This is a 73-year-old female who presents with worsening back and leg pain. After failing extensive course of nonoperative care is here for surgical intervention. Principal Diagnosis Lumbar spinal stenosis with neurogenic claudication Discharge Data Allergies Allergy/AdvReac Type Severity Reaction Status Date / Time cat dander Allergy Unknown RASH Verified 11/01/19 10:01 dog dander Allergy Unknown RASH Verified 11/01/19 10:01 grass pollen-perennial rye, Allergy Unknown RASH Verified 11/01/19 10:01 standar Corticosteroids AdvReac Unknown night Verified 11/01/19 10:01 (Glucocorticoids) sweats Consultations 11/01/19 16:35 Consult Case Management - Discharge Planning Routine Consult Hospitalist Routine Procedures Performed Operation Date: 11/01/19 10:55 Actual Procedures p L4-S1 Decompression and Fusion, Interbody Insertion L5-S1, Spinal Cord Monitoring(Not Applicable) - Brant Cohen DO s L2-L5 Hardware Removal,(Not Applicable) - Brant Cohen DO Ordered Studies 11/01/19 10:55 FL fluoroscopy <1hr Routine FL lumbar spine 2-3V Routine Hospital Course (1) Lumbar stenosis with neurogenic claudication: Patient underwent lumbar decompression fusion troll as well as taken to orthopedic for possibly. Postop day 1 her leg pain was improved she was tolerating physical therapy. She progressed to postop day #2 on postop day #3 her back pain was controlled leg pain improved excellent strength testing JEFF drain decreasing appropriately. Subsequent discharge home. Discharge orders instructions from the chart for further review. Total Time Total Time Spent Total Time Spent (In Minutes): 20 minutes Discharge Plan Discharge Items Patient Disposition: Home - Self-Care Reason For Visit: Spinal Stenosis, Lumbar Region without Neurogenic Discharge Diagnosis: Lumbar spinal stenosis with neurogenic claudication Activity: As commented below Non-emergency contact: Primary Care Provider Call non-emergency contact if: you have any medication questions Follow-up/Referrals: Shalom Harris III, CRNP [Primary Care Provider] - Diet: Regular Addtl Attending Provider Instructions: ACTIVITY RECOMMENDATIONS: SELF CARE INSTRUCTIONS AFTER THORACIC/LUMBAR FUSIONS 1. You may walk to your tolerance. It is good exercise for your legs and back. Expect some back and intermittent leg aches and pains. 2. You may perform "counter-top" level activities (make a sandwich, maureen with a project, etc.). 3. No bending or lifting of more than 10 pounds or back twisting of any nature (roll like a log when turning in bed). 4. You may ride in a car for 20-30 minutes at a time. No driving until after your first visit with your doctor. 5. Frequent changes of position and restricting sitting to 30 minutes at a time will help limit the amount of back spasms and stiffness you may experience. 6. You may discontinue the use of ambulatory aids (cane, crutches, etc.) once your strength and confidence allow. 7. You may accounts payable administrator the shower and let water strike your incision when you arrive home at least once daily. Do not take a tub bath, sit in a hot tub or go into a swimming pool until after your first recheck in the office. SPECIAL CARE INSTRUCTIONS: VERY IMPORTANT TO READ AND REVIEW A. Your surgical incision has been closed with a cosmetic suture under the skin that will dissolve in about 6 weeks. In 14 days, you can use a pair of clean scissors and cut the suture that is left outside of the skin at the ends of your incision. 1. The small skin tapes can be removed 7 days after surgery if they have not fallen off by that point. 2. You may keep the wound open to air as much as possible to promote healing after post-op day number 5 unless told otherwise by your doctor. 3. If you think the wound looks like it is becoming infected (redness or worsening drainage) and/or you are experiencing fever, chill or worsening back pain and muscle spasms, contact the office so that we may evaluate you as soon as possible. B. Complications are uncommon, but please contact us if you have any signs or symptoms of: 1. wound infection (fever higher than 102.5 degrees F, redness, separation of wound, drainage, or increasing pain from the incision) 2. blood clots in legs (pain, swelling, redness and warmth in legs) 3. urinary tract infection (fever higher than 102.5 degrees F, burning upon urination or increased frequency of urination) 4. nerve problems (inability to walk on your toes or heels, numbness, loss of bowel or bladder control) 5. any other symptoms that concern you C. Please call the office at if you have any concerns or questions about your operation or recovery. D. No smoking! Smoking drastically decreases the chance of a solid fusion. E. Do not take any anti-inflammatory medications (Indocin, Advil, Motrin, Aspirin, Naprosyn, etc.) as these may inhibit the chance of a solid fusion. Tylenol is okay to take for pain. MANAGING PAIN AFTER SPINAL SURGERY 1. Narcotic medication is intended for short-term use and will be provided for surgical pain. Surgical pain usually lasts for a period of 4-6 weeks. Narcotic medication includes Percocet, Vicodin, Darvocet, Tylenol #3 or Lortab. 2. Longer-term pain is more appropriately treated with non-narcotic medication such as Tylenol ES. 3. Muscle spasm is not appropriately treated with narcotics. Muscle relaxers such as Soma, Flexeril or Skelaxin can be used along with Tylenol ES. 4. Remember that we all live with some "aches and pains". This is not unusual or uncommon after an injury or as we get older. a. Back pain is expected and may include muscle spasms for 4 to 6 weeks after surgery. The pain should gradually improve. If the pain worsens for no apparent reason, please contact the office. b. Intermittent leg pain may also be experienced and should not be concerned about unless it worsens for no apparent reason. If so, please contact the office. 5. We will provide appropriate medication within the normal guidelines of their prescribed use. We will also be very cautious and aware of potential abuse and extended duration of patients' medication needs. a. Pain medications are for your comfort and to assist with sleep and rest so that the tissue can heal. They are not provided in order to return to normal activity and should not be used through the day. To do so or worsening pain at night can result from ongoing tissue damage and development of tolerance to the prescribed medicine. 6. Please allow 2-3 days to process refills. Prescriptions will not be mailed but must be picked up at the office. FOLLOW UP VISIT: Keep your scheduled follow-up appointment. Any questions, please call the office at . Pending Studies at Discharge: No Stand-Alone Forms: My [employer], Smoking Cessation Medications and DC Order Prescriptions: New tramadol 50 mg tablet 50 mg PO Q6H PRN (Reason: pain, moderate) Qty: 20 RF: 0 oxycodone 5 mg tablet 5 mg PO Q6H PRN (Reason: pain, severe) Qty: 20 RF: 0 Continued pilocarpine HCl 5 mg Tablet 5 mg PO HS RF: 0 folic acid 1 mg Tablet 800 mg PO FR@0900 RF: 0 lisinopril 5 mg Tablet 5 mg PO QAM RF: 0 esomeprazole magnesium [Nexium] 20 mg Capsule,Delayed Release(Dr/Ec) 20 mg PO HS RF: 0 pregabalin [Lyrica] 75 mg Capsule 75 mg PO BID RF: 0 Bystolic 20 mg Tablet 40 mg PO QAM RF: 0 Allergy Shot 1 dose WK RF: 0 hydromorphone [Dilaudid] 2 mg Tablet 2 mg PO HS PRN (Reason: Pain) RF: 0 duloxetine 30 mg Capsule,Delayed Release(Dr/Ec) 30 mg PO DAILY RF: 0 duloxetine 60 mg Capsule,Delayed Release(Dr/Ec) 60 mg PO HS RF: 0 lidocaine [Salonpas (lidocaine)] 4 % Adhesive Patch,Medicated 1 patch TOPICAL DAILY PRN (Reason: Pain) RF: 0 Restasis 0.05 % Dropperette 1 drp OPB Q12H PRN (Reason: Dry Eyes) RF: 0 Discontinued methotrexate sodium 2.5 mg Tablet 20 mg PO FR@0800 RF: 0 Discharge Orders: Discharge Order (Routine); Ordered 11/04/19 Ordered By: Brant Cohen Admission Data Admit Date/Time: 11/01/19 15:17 Attending Provider: Brant Cohen Admit Provider: Brant Cohen Primary Care Provider: Shalom Harris III Other Providers: Kelsey Dobbs
[2019-11-04] MEDS: DULOXETINE HCL 30 MG CAP PO SCH (10:32)
== END 2019-11-04 12:21 | disposition home or self-care (01) | DRG 454 ==
LOC: ASU 09:16 → 3E 15:17